=== PATIENT | female | born 1960 | race Caucasian/White ===

== ENCOUNTER 2025-03-30 15:11 | Outpatient (AMB) | payer MEDICARE, SELFPAY ==
--- OUTSIDE RECORDS SUMMARY | 2025-03-29 17:50 | XMS_ITS | Continuity of Care Document ---
Author Organization [facility] ter Address [address] [place] [id number]- Care Team Providers Care Director Digital Marketing Name Role Phone Venkata LÓPEZ, oD Primary Care Physician [phone] [id number] Date(s): 03/26/25 - 03/29/[address] [id number] Discharge Disposition: A-D/C Home Attending Physician: Edmund Lennon MD Admitting Physician: Vangie Burk MD Referring Physician: Not on Staff, Referring MD Encounter Type: Disch IP Allergies, Adverse Reactions, Alerts Substance Criticality Severity Reaction Reaction Severity Status Demerol Active Functional Status Functional Status Assessment Assessment Assessment Component Result Effecti ve Total score [AUDIT] 1 03/27/25 Functional Status Assessment Assessment Assessment Component Result Effecti ve Total Falls Risk Score 10 Functional Status Assessment Assessment Assessment Component Result Effecti ve Jerman scale total score 21 03/29/25 Functional Status Assessment Assessment Assessment Component Result Effecti ve Jerman scale total score 21 03/28/25 Functional Status Assessment Assessment Assessment Component Result Effecti ve Total Falls Risk Score 8 Functional Status Assessment Assessment Assessment Component Result Effecti ve Jerman scale total score 20 03/28/25 Functional Status Assessment Assessment Assessment Component Result Effecti ve Total Falls Risk Score 3 Medications acetaminophen 325 mg oral tablet 650 mg, By Mouth, Every 4 hours, PRN, not to exceed 4000 mg/day, # 30 tablet, Refills 0, Tot. Refills 0, Maintenance, Pain , Mild, 03/29/25 2:59:00 PM EST, Route to Pharmacy Electronically, [facility], Partial fill upon patient request if the prescription is for a schedule II opioid drug., 160, cm, 03/27/25 5:09:00 EST, Height, 46.3, kg, 03/27/25 1:07:00 EST, Dry Weight Start Date: 03/29/25 Status: Ordered Medication Dispense Status: Completed Quantity: 30.0 Unit: tablet Total Allowed Fills: 1 Fills Dispensed: 0 Acetaminophen Tablet 650 mg, Tablet, By Mouth, Every 4 hours, PRN for Pain , Mild, Temperature Greater than 100.5, Routine, 03/26/25 10:27:00 PM EST Start Date: 03/26/25 Stop Date: 03/30/25 Status: Discontinued Medication Dispense Status: Completed Total Allowed Fills: 1 Fills Dispensed: 0 amLODIPine 2.5 mg oral tablet 2.5 mg, 1, tablet, By Mouth, Daily, # 90 tablet, Refills 0, Tot. Refills 0, Maintenance, 03/12/25 11:33:00 AM EST, Route to Pharmacy Electronically, [facility], Partial fill upon patient request if the prescription is for a schedule II opioid drug., 158, cm, 03/12/25 9:13:00 EST, Height Start Date: 03/12/25 Status: Ordered Medication Dispense Status: Completed Quantity: 90.0 Unit: tablet Total Allowed Fills: 1 Fills Dispensed: 0 amLODIPine 5 mg oral tablet 2.5 mg, Tablet, By Mouth, 03/29/25 9:00:00 AM EST Start Date: 03/29/25 Stop Date: 03/29/25 Status: Completed Medication Dispense Status: Completed Total Allowed Fills: 1 Fills Dispensed: 0 dexamethasone 4 mg oral tablet 1 tablet = 4 mg, By Mouth, Every 6 hours, for 7 days, # 28 tablet, 0 Refills, Acute 04/05/25 3:00:00 PM EST, 03/29/25 3:00:00 PM EST, Tablet, [facility], Partial fill upon patient request if the prescription is for a schedule II opioid drug., 160, cm, 03/27/25 5:09:00 EST, Height, 46.3, kg, 03/27/25 1:07:00 EST, Dry Weight Start Date: 03/29/25 Stop Date: 04/05/25 Status: Ordered Medication Dispense Status: Completed Quantity: 28.0 Unit: tablet Total Allowed Fills: 1 Fills Dispensed: 0 Keppra 500 mg oral tablet = 500 mg, By Mouth, 2 times a day, # 60 tablet, 0 Refills, Maintenance, 03/29/25 2:59:00 PM EST, Tablet, [facility], Partial fill upon patient request if the prescription is for a schedule II opioid drug., 160, cm, 03/27/25 5:09:00 EST, Height, 46.3, kg, 03/27/25 1:07:00 EST, Dry Weight Start Date: 03/29/25 Status: Ordered Medication Dispense Status: Completed Quantity: 60.0 Unit: tablet Total Allowed Fills: 1 Fills Dispensed: 0 oxyCODONE 5 mg oral tablet 2.5 mg, By Mouth, Every 6 hours, PRN, # 7 tablet, Refills 0, Tot. Refills 0, Maintenance, Pain , Severe, 03/29/25 2:58:00 PM EST, Route to Pharmacy Electronically, [facility], Partial fill upon patient request if the prescription is for a schedule II opioid drug., 160, cm, 03/27/25 5:09:00 EST, Height, 46.3, kg, 03/27/25 1:07:00 EST, Dry Weight Start Date: 03/29/25 Status: Ordered Medication Dispense Status: Completed Quantity: 7.0 Unit: tablet Total Allowed Fills: 1 Fills Dispensed: 0 Mental Status Mental Status Assessment Assessment Assessment Component Result Effecti ve Date Hopkins coma score total 15 03/29/25 Mental Status Assessment Assessment Assessment Component Result Effecti ve Date Hopkins coma score total 15 03/28/25 Mental Status Assessment Assessment Assessment Component Result Effecti ve Date Gary coma score total 15 03/28/25 Problem List Condition Confirmation Course Effective Dates Status Health St atus Informant Underweight Confirmed Active Results Radiology Reports * Exam Date Time Procedure Performing Provider Status 03/27/25 5:44 PM MRI Brain W+W/O Contrast Auth (Verified) Notes: (MRI Brain W+W/O Contrast) Reason For Exam: Seizure Disorder RESULT: MRI Brain W+W/O Contrast MRI Brain W+W/O Contrast INDICATION / CLINICAL QUESTION: Reason: Seizure Disorder; Clinical Question(s): Other:; METS, MASS;Order Comment: Please see Reference Text for complete list of contraindications - TECHNIQUE: Multiplanar, multisequence MRI of the brain was performed before and after the administration of intravenous contrast. 10 mL of Prohance was administered intravenously. COMPARISON: CT head 03/26/2025 FINDINGS: BRAIN and EXTRA-AXIAL SPACES: Prominent ventricles and cerebral sulci, suggestive of mild age-related cerebral volume loss. The basal cisterns are patent. Numerous enhancing supratentorial and infratentorial lesions, as follows. No significant associatedintralesional hemorrhage.: * 10 x 9 mm enhancing lesion at the superior left perirolandic cortex at the vertex with mild subcortical edema (10:37). * 10 x 8 mm lesion at the junction between left temporal and occipital lobe, mostly cortically based with minimal subcortical edema (10:108). * Subcentimeter enhancing lesions in the superior left temporal lobe and lateral left frontal operculum (10:100, 10:90). Additional smaller lesions throughout supratentorial compartment involving right frontal lobe, medial and lateral right parietal lobe, posterior left parietal lobe, as annotated on series 10. * A 15 x 13 mm inferior right cerebellar lesion, along the surface, with possible overlying dural thickening (10:164, 1001:35), possibly overlying subarachnoid extension and attachment to the dura. * Numerous smaller subcentimeter lesions that the bilateral cerebellar hemispheres. * Tiny plaque-like enhancement along the surface of right precentral gyrus (10:52), suspicious for leptomeningeal disease. No evidence of acute infarct or hemorrhage. Nonenhancing 10 mm T2/FLAIR hyperintense focus in the superior right frontal lobe superior sagittal sinus subcortical white matter (9:8), with associated central somewhat branching susceptibility artifact (4:8), possibly a tiny DVA. There is no midline shift, or mass effect. There is no extra-axial collection. Normal flow voids are preserved in the dominant intracranial vessels. Bilateral hippocampi are unremarkable and symmetric in size and signal. EXTRACRANIAL SOFT TISSUES: Orbits are unremarkable. Paranasal sinuses are unremarkable. Bilateral mastoid effusions. BONES: No suspicious bony lesion. IMPRESSION: 1. Numerous supratentorial and infratentorial enhancing lesions, as above, concerning for intracranial metastases, mostly intra-axial, but a few suspicious leptomeningeal disease component along the right precentral gyrus and inferior right cerebellum. 2. Nonspecific patchy edema or gliosis in the superior right frontal lobe white matter with possible central susceptibility artifact. Finding is nonspecific, but mild edema associated with tiny DVA. WSN: [id number] Ordering Physician: Sukhdev Johnston Dictated By: Amrit Periera DO Dictated Date/Time: 03/27/25 6:29 pm Reviewed By: Amrit Pereira DO Signed By: Amrit Pereira DO Signed Date/Time: 03/27/25 6:29 pm Transcribed By: NESSA Transcribed Date/Time: 03/27/25 6:02 pm * Exam Date Time Procedure Performing Provider Status 03/26/25 7:[address] Head/Brain W/O Contrast Auth (Verified) Notes: (CT Head/Brain W/O Contrast) Reason For Exam: Seizure Disorder RESULT: CT Head/Brain W/O Contrast CT Head/Brain W/O Contrast INDICATION: Hx of Present Illness: Pt unable to offer complaints r t being unresponsive.; Reason: Seizure Disorder; Clinical Question(s): Tumor Primary; Order Comment: - TECHNIQUE: Noncontrast head CT using axial technique and reconstructed in axial and coronal planes.Iterative reconstruction techniques are used to optimize dose and image quality. CTDIvol Head: 48.20 mGy, DLP Head: 772 mGy*cm. COMPARISON: 03/11/2025 FINDINGS: Jig Worker view findings, lines and tubes: None. BRAIN AND EXTRA-AXIAL SPACES: No parenchymal hemorrhage, midline shift, or mass effect. Chamberlain-white matter differentiation is wellpreserved. No acute infarct. Ventricles, sulci, and basilar cisterns are normal. No white matter lesions. No subarachnoid hemorrhage. No subdural or epidural collection. CALVARIUM, SKULL BASE, AND SOFT TISSUES: No fractures or suspicious bony lesions. The paranasal sinuses and mastoid air cells are clear. Visualized orbits and globes are intact. The extracranial soft tissues are unremarkable. IMPRESSION: No acute intracranial pathology. WSN: [id number] Ordering Physician: Moe Angeles Dictated By: Alen Camacho MD Dictated Date/Time: 03/26/25 7:41 pm Reviewed By: Alen Camacho MD Signed By: Alen Camacho MD Signed Date/Time: 03/26/25 7:41 pm Transcribed By: NESSA Transcribed Date/Time: 03/26/25 7:37 pm * Exam Date Time Procedure Performing Provider Status 03/26/25 5:17 PM Chest Portable Auth (Nando campuzanoadriana) Notes: (Chest Portable) Reason For Exam: Pneumonia/sepsis;Other: RESULT: Chest Portable Chest Portable performed semiupright at 5:04 PM Hx of Present Illness: Pt unable to offer complaints r t being unresponsive.; Reason: Other:; Pneumonia sepsis; Clinical Question(s): Other:; pneumonia COMPARISON: Chest x-rays and chest CT dated 03/11/2025 FINDINGS: LINES AND TUBES: None. LUNGS AND PLEURA: Mass in the left upper lobe is again seen measuring approximately 10 cm. Additional nodules in the right upper lobe are better visualized on the recent chest CT. No focal infiltrate. No evidence of pleural effusion. No pneumothorax. HEART, MEDIASTINUM AND ALLEN: Heart is normal in size. Unchanged obscuration of the left hilum. Mild calcification in the aortic arch. Increased elevationof the left hemidiaphragm. BONES AND SOFT TISSUES: No acute abnormality. IMPRESSION: No significant change in known left upper lobe mass compatible with biopsy- proven adenocarcinoma. Additional nodules in the right upper lobe are better visualized on recent chest CT. No evidence of pneumonia. WSN: [id number] Ordering Physician: Moe Angeles Dictated By: Barbara Moore MD Dictated Date/Time: 03/26/25 5:24 pm Reviewed By: Barbara Moore MD Signed By: Barbara Moore MD Signed Date/Time: 03/26/25 5:24 pm Transcribed By: NESSA Transcribed Date/Time: 03/26/25 5:18 pm Vital Signs Most recent to oldest [Reference Range]: 1 2 3 Height 160 cm (03/27/25 5:09 AM) 160 cm (03/27/25 1:17 AM) 160 cm (03/27/25 1:07 AM) Weight 46.3 kg (03/27/25 1:07 AM) 46 kg (03/26/25 7:48 PM) 46 kg (03/26/25 4:55 PM) Oxygen Saturation [94-100 %] 98 % (03/29/25 3:00 PM) 97 % (03/29/25 11:00 AM) 96 % (03/29/25 7:00 AM) Pulse Rate [55-90 bpm] 96 bpm *H* (03/29/25 3:00 PM) 89 bpm (03/29/25 11:00 AM) 93 bpm *H* (03/29/25 7:00 AM) Body Mass Index [18.5-24.99 kg/m2] 18.09 kg/m2 *L* (03/27/25 1:07 AM) 16.3 kg/m2 *L* (03/26/25 7:48 PM) 16.3 kg/m2 *L* (03/26/25 3:59 PM) Blood Pressure [90-138/55-84 mm Hg] 125/60mm Hg (03/29/25 3:00 PM) 115/73mm Hg (03/29/25 11:00 AM) 121/69mm Hg (03/29/25 10:09 AM) Respiratory Rate [16-30 br/min] 16 br/min (03/29/25 4:24 PM) 16 br/min (03/29/25 3:00 PM) 16 br/min (03/29/25 11:12 AM) Temperature [96.8-100.4 DegF] 98.1 DegF (03/29/25 3:00 PM) 97.5 DegF (03/29/25 11:00 AM) 98.2 DegF (03/29/25 7:00 AM) Liters per Minute 2 L/min (03/26/25 11:13 PM) 2 L/min (03/26/25 8:00 PM) 2 L/min (03/26/25 7:48 PM) Mode of Delivery (Oxygen) Room air (03/29/25 3:00 PM) Room air (03/29/25 11:00 AM) Room air (03/29/25 7:00 AM) Blood pressure sites Arm, right (03/29/25 3:00 PM) Arm, right (03/29/25 11:00 AM) Arm, right (03/29/25 7:00 AM) Temperature Route Oral (03/29/25 3:00 PM) Oral (03/29/25 11:00 AM) Oral (03/29/25 7:00 AM) Dry Weight 46.3 kg (03/27/25 1:07 AM) Weight Obtained Via Patient/family state d (03/26/25 3:59 PM) Social History Social History Type Response Sex Sex Representation Female (finding) Status Not Admission evaluation note * Sukhdev Johnston MD: PERFORM Event Display: Admission Note Authored Date: [id number] Patient: ??BRIT NAJERA ? Age:??65 Years?Sex:??Female?:??1960?LOC:??[facility]?? Chief Complaint/Reason for Consultation Seizure History of Present Illness The patient is a 65 years old female with recently diagnosed??left lung cancer, hypertension presented to ER with a chief complaint of seizure. ? The patient was discharged from [facility] on March 12 after being admitted??for??spasm in right leg. ??During hospital stay, patient was found to have new left lung mass, underwent??biopsy and discharged home with outpatient follow-up. ? The patient reported??reported that she continues to have??twitching/spasm in her right lower extremity and??today, she??thinks she might have a seizure??as she passed out while??sitting in the couch.?? Therefore, she decided come to the ER ?? In the triage room, patient??had a witnessed generalized tonic-clonic seizure??and was given IV Keppra,??and admitted for further management ? On my eval, patient alert, awake, oriented x 3,??reporting lower back pain but denying any chestpain or shortness of breath Review of Systems All pertinent negative and positives are noted in HPI. ??All other systems were reviewed and are negative Objective Measurements?? Height: 168 cm (03/26/25) Weight: 46 kg (03/26/25) Body Mass Index:??16.3 kg/m2??Low (03/26/25) ? Vital Signs?? Temperature: 98 DegF (03/26/25 23:13:00) Temperature Route: Oral (03/26/25 23:13:00) Pulse Rate: 87 bpm (03/26/25 23:13:00) Respiratory Rate:??13 br/min??Low (03/26/25 23:56:00) Systolic Blood Pressure:??151 mm Hg??High (03/26/25 20:00:00) Diastolic Blood Pressure: 82 mm Hg (03/26/25 20:00:00) Blood pressure sites: Arm, right (03/26/25 23:13:00) Mean Arterial Pressure: 97 mm Hg (03/26/25 19:48:00) Pulse Pressure: 63 mm Hg (03/26/25 19:48:00) Oxygen Saturation: 100 % (03/26/25 23:13:00) Liters per Minute: 2 L/min (03/26/25 23:13:00) Mode of Delivery (Oxygen): Nasal cannula (03/26/25 23:13:00) Early Warning Score: 0 (03/27/25 00:04:12) ? Physical Exam Constitutional: Alert, in no acute distress. Head: Normocephalic. ?? Eyes: Pupils are equal, round and reactive to light. Extraocular muscles intact. No pallor or scleral icterus ?? Ear, Nose and Throat: mucous membranes moist. Ears and nose - no obvious deformities. Trachea midline. ?? Neck: Supple, Full range of motion.No JVD or bruits. Respiratory:??Clear to auscultation. No wheezing or rhonchi.??No use of accessory muscles. No tactile fremitus.?? Cardiovascular:??PMI not visible. S1 S2 regular. No murmurs, rubs or gallops. Gastrointestinal:??Abdomen soft, non-tender, non-distended. Normal bowel sounds. No pulsatile mass.No hepatosplenomegaly. Genitourinary:??No costovertebral angle tenderness. Extremities: No lower extremity pitting edema. No cyanosis or clubbing. Neurologic:??AAOx3, Cranial nerves II-XII grossly intact. Speech normal, no facial droop. No focal neurological deficits. Moves all extremities spontaneously. Sensation intact bilaterally.??Flexor plantar response Skin:??No rash.?? Musculoskeletal:??No gross deformities on inspection. Heme/Lymphatics:??Palpation of neck reveals no swelling or tenderness of neck nodes.?? Psychiatric: Normal mood and affect. Assessment/Plan Diagnoses 1. ??New onset seizure ??(R56.9) 2. ??Adenocarcinoma of left lung ??(C34.92) 3. ??High anion gap metabolic acidosis ??(E87.29) 4. ??Lactic acidosis ??(E87.20) 5. ??Hypercalcemia ??(E83.52) 6. ??Hypokalemia ??(E87.6) 7. ??HTN (hypertension) ??(I10) ?? Assessment:??The patient is a 65 years old female who is admitted with seizure ?? New onset seizure (R56.9):??Patient.??To ER due to twitching/spasm of right lower extremity and??had a generalized tonic-clonic seizure in the ER Patient reports that??she might have??a seizure at home as well??as she passed out while??sitting in sofa Patient recently diagnosed with??left-sided lung cancer CT head was done that did not show any evidence of acute abnormality Labs showed??normal sodium, normal mag, calcium level??12.2 Ordered MRI brain, EEG,??U tox Started patient on Keppra 500 mg twice daily, seizure precautions Neurology consulted, will follow recommendations ?? Adenocarcinoma of left lung (C34.92):??Patient was recently diagnosed with a left-sided lung cancer Patient is scheduled undergo PET scan on April 04,??appointment with pulmonology on ??and permanent with PCP??on Continue outpatient follow-up ? High anion gap metabolic acidosis (E87.29):??Etiology: Due to seizure Resolved with IV fluids ?? Hypokalemia (E87.6):??Repleted ?? HTN (hypertension) (I10):??Resume home meds amlodipine ?? Hypercalcemia (E83.52):??Etiology: Likely due to malignancy Labs showed calcium 11.1 Will give 1 L of IV fluids normal saline and trend calcium with labs ?? VTE Prophylaxis:??Lovenox ?VTE Prophylaxis Assessment:??VTE Prophylaxis Ordered ?? Discharge Planning:??Pending clinical course ?? Ongoing Medical Necessity:??New onset seizure ?? Code Status:??Full code ?Order Code Status:??Code Status Ordered ? Date of service: March 26, 2025 Histories Allergies Allergies ?(Active and Proposed Allergies Only) Demerol? (Severity: Unknown severity, Onset: Unknown) ? Past Medical History/Problem List Active Problems(1) Underweight ? Past Surgical History No surgery history documented. ? Social History No social history documented. ? Family History No Family History documented. ? Medications Home Medications Amlodipine (amLODIPine 2.5 mg oral tablet)??2.5 Milligram 1 tablet By Mouth Daily ? Results Recent Labs BLOOD COUNT & DIFF WBC 15.7 k/mm3 (High)?? 03/26/2025 16:30 RBC 4.73 m/mm3 ()?? 03/26/2025 16:30 Hgb 13.1 Gm/dL ()?? 03/26/2025 16:30 Hct 41.9 % ()?? 03/26/2025 16:30 MCV 88.6 femtoliters ()?? 03/26/2025 16:30 MCH 27.7 pg ()?? 03/26/2025 16:30 MCHC 31.3 Gm/dL (Low)?? 03/26/2025 16:30 Platelet Count 485 k/mm3 (High)?? 03/26/2025 16:30 RDW-SD 42.2 femtoliters ()?? 03/26/2025 16:30 MPV 9.4 femtoliters ()?? 03/26/2025 16:30 Nucleated RBC (Automated) 0.0 #/100 WBC'S ()?? 03/26/2025 16:30 Abs. NRBC 0.0 k/mm3 ()?? 03/26/2025 16:30 Abs. Neut 11.6 k/mm3 (High)?? 03/26/2025 16:30 Abs. Lymph 2.8 k/mm3 ()?? 03/26/2025 16:30 Abs. [place] 0.9 k/mm3 ()?? 03/26/2025 16:30 Abs. Eo 0.1 k/mm3 ()?? 03/26/2025 16:30 Abs. Baso 0.1 k/mm3 ()?? 03/26/2025 16:30 Neut % 73.9 % ()?? 03/26/2025 16:30 Lymph % 18.1 % ()?? 03/26/2025 16:30 [place] % 5.8 % ()?? 03/26/2025 16:30 Eos % 0.8 % ()?? 03/26/2025 16:30 Baso % 0.8 % ()?? 03/26/2025 16:30 Hemoglobin (POC) POC Cartridge 14.3 Gm/dL ()?? 03/26/2025 16:20 Hematocrit (POC) POC Cartridge 42 % ()?? 03/26/2025 16:20 Imm Gran 0.6 % ()?? 03/26/2025 16:30 Abs. Imm Gran 0.1 k/mm3 ()?? 03/26/2025 16:30 ?? BLOOD GAS pH Venous (POC) POC Cartridge 7.19 (Low)?? 03/26/2025 16:20 pCO2 Venous (POC) POC Cartridge 47.6 mm Hg ()?? 03/26/2025 16:20 pO2 Venous (POC) POC Cartridge 110 mm Hg (High)?? 03/26/2025 16:20 Est Bicarbonate (POC) POC Cartridge 18.0 mmol/L (Low)?? 03/26/2025 16:20 % O2 Sat Venous (POC) POC Cartridge 97 ()?? 03/26/2025 16:20 Base Excess (POC) POC Cartridge NEGATIVE 10 ()?? 03/26/2025 16:20 Specimen Type - Blood Gas VENOUS ()?? 03/26/2025 16:20 ?? CHEM GENERAL Sodium 139 mmol/L ()?? 03/26/2025 20:22 Potassium 4.0 mmol/L ()?? 03/26/2025 20:22 Chloride 101 mmol/L ()?? 03/26/2025 20:22 Bicarbonate Level 25 mmol/L ()?? 03/26/2025 20:22 Anion Gap 13 mmol/L ()?? 03/26/2025 20:22 Sodium (POC) POC Cartridge 137 mmol/L ()?? 03/26/2025 16:20 Potassium (POC) POC Cartridge 3.3 mmol/L (Low)?? 03/26/2025 16:20 Glucose Level 117 mg/dL (High)?? 03/26/2025 20:22 Glucose (POC) POC Cartridge 195 (High)?? 03/26/2025 16:20 Glucose, POC 144 mg/dL (High)?? 03/26/2025 16:15 BUN 11 mg/dL ()?? 03/26/2025 20:22 Creatinine-Blood 0.45 mg/dL (Low)?? 03/26/2025 20:22 Estimated GFR Creatinine 105 ML/MIN/1.73 M2 ()?? 03/26/2025 20:22 Calcium 11.1 mg/dL (High)?? 03/26/2025 20:22 Ionized Calcium (POC) POC Cartridge 1.50 mmol/L (Critical)?? 03/26/2025 16:20 Phosphorus 2.8 mg/dL ()?? 03/26/2025 16:30 Magnesium 2.1 mg/dL ()?? 03/26/2025 16:30 Protein, Total 7.7 Gm/dL ()?? 03/26/2025 16:30 Albumin 4.5 Gm/dL ()?? 03/26/2025 16:30 AG Ratio 1.4 ()?? 03/26/2025 16:30 Alkaline Phosphatase 73 units/L ()?? 03/26/2025 16:30 AST (SGOT) 21 units/L ()?? 03/26/2025 16:30 ALT (SGPT) 13 units/L ()?? 03/26/2025 16:30 Bilirubin, Total 0.3 mg/dL ()?? 03/26/2025 16:30 Lactate 1.1 mmol/L ()?? 03/26/2025 20:22 ?? ENDOCRINE/TUMOR MARKER TSH 1.59 uIU/mL ()?? 03/26/2025 16:30 ?? MISC. CHEMISTRY Hold Green Top SPECIMEN DISCARDED AFTER 1 WEEK ()?? 03/26/2025 20:22 ?? UA/URINALYSIS Appear/Color, Urine LIGHT YELLOW ()?? 03/26/2025 23:30 Specific Mallory, Urine 1.009 ()?? 03/26/2025 23:30 pH, Urine 7.5 ()?? 03/26/2025 23:30 Albumin, Urine TRACE (Abnormal)?? 03/26/2025 23:30 Glucose, Urine NEGATIVE ()?? 03/26/2025 23:30 Ketones, Urine NEGATIVE ()?? 03/26/2025 23:30 Bilirubin, Urine NEGATIVE ()?? 03/26/2025 23:30 Hemoglobin, Urine NEGATIVE ()?? 03/26/2025 23:30 Nitrite, Urine NEGATIVE ()?? 03/26/2025 23:30 Leukocyte, Urine NEGATIVE ()?? 03/26/2025 23:30 Urobilinogen NORMAL mg/dL ()?? 03/26/2025 23:30 WBC's, Urine NONE SEEN /HPF ()?? 03/26/2025 23:30 RBC's, Urine NONE SEEN /HPF ()?? 03/26/2025 23:30 Amorphous Crystals SLIGHT /HPF ()?? 03/26/2025 23:30 ?? VIROLOGY Influenza A PCR NEGATIVE ()?? 03/26/2025 19:53 Influenza B PCR NEGATIVE ()?? 03/26/2025 19:53 RSV PCR NEGATIVE ()?? 03/26/2025 19:53 COVID-19 PCR Result NEGATIVE ()?? 03/26/2025 19:53 ? Coagulation Profile?? No qualifying data available. ? Electronically Signed on 03/27/25 12:30 AM Preston LÓPEZ Sukhdev EKG study * Event Display: ECG 12-Lead Authored Date: Please click on pdf link to open report * Event Display: ECG 12-Lead Authored Date: Ventricular Rate: 118 BPM Atrial Rate: 118 BPM P-R Interval: 150 ms QRS Duration: 100 ms Q-T Interval: 336 ms QTC Calculation(Bazett): 470 ms P Mobile: -8 degrees R Mobile: 90 degrees T Mobile: -10 degrees Sinus tachycardia Incomplete right bundle branch block Anterolateral infarct (cited on or before 10-Mar-2025) Abnormal ECG When compared with ECG of 10-Mar-2025 18:52, Questionable change in initial forces of Lateral leads T wave inversion now evident in Inferior leads Confirmed by DAVIE LÓPEZ, [facility] ([id number]) on 03/29/2025 8:21:15 AM [place]: DAVIE LÓPEZ,[facility] Progress note * Cookie Singletary RN: SIGN, PERFORM, SIGN, VERIFY, MODIFY Event Display: Progress Note Hospital Authored Date: Patient: BRIT NAJERA Age: 65 years Sex: Female : 1960 Associated Diagnoses: None Author: Cookie Singletary RN Findings Problem Related to Alteration in Neurological : Alteration in Neurological Function/new 03/29/2025 8:00 EST Alteration in Neuro status Related to Seizure Goals & Outcomes, Neurological Pt will be hemodynamically stable, Pt will be Neurologically stable, Pt will remain free from injury, Pt/caregiver will receive psychosocial support as needed, Pt/caregiver will state understanding of disease process, Pt/caregiver will state understanding of plan/goals of care, Pt will be free from complications r/t seizure activity, Pt will be seizure controlled, Pt will remain free from injury post seizure activity, Pt will return to baseline after post ictal phase, Pt/caregiver will state understanding of home management Interventions, Neurological Assess/monitor neurologic status, Assess/monitor VS per unit standards & prn, Keep patient's head & body in good alignment, Maintain normothermia, report temp >101.5 F, Monitor Fluid & Electrolytes, Serum Osmolarity, Monitor for headaches, nausea, vomiting, Monitor speech fluency, aphasia, word finding difficulty, Physical assessment per unit standards, P rovide emotional support to Pt/caregiver, Assess & monitor for seizure activity, Assess for aspiration and status epileptics, Initiate & maintain Seizure Precautions, Minimize seizure triggering stimuli (i.e. light, noise, pain, Monitor for therapeutic levels of anti-seizure meds BH Goals/Interventions, Neurological Yes Neurological, Problem Start 03/27/2025 1:00 Reviewed plan with, Neurological Patient Patient Progression, Neurological Pt progressing according to plan . Nursing Data Neurological Data. : Neurological Data. 03/29/2025 8:00 EST Tongue Disposition Midline Neurological Symptoms Altered sensation or tingling Level of Consciousness Full Consciousness Orientated to person, place, time Person, Place, Time, Event Hallucinations None Facial Symmetry Intact Characteristics of Speech Clear and normal Swallowing Difficulty None Pupil description, left Regular Pupil description, right Regular Pupil reaction, left Brisk Pupil reaction, right Brisk Strength LUE 5-Active movement against gravity & full resistance Strength RUE 5-Active movement against gravity & full resistance Strength LLE 5-Active movement against gravity & full resistance Strength RLE 5-Active movement against gravity & full resistance Sensation LUE Intact Sensation RUE Intact Sensation LLE Intact Sensation RLE Diminished Movement LUE Spontaneous, To command Movement RUE Spontaneous, To command Movement LLE Spontaneous, To command Movement RLE Spontaneous, To command Gait Steady Response Eye Opening Spontaneously Motor Response-Adult Obeys commands Verbal Response-Adult Oriented and converses Gary Coma Score 15 Neuro WNL except Eyes and Movements Conjugate gaze: Move in same direction at same speed Swallow - Neuro Normal . Narrative/Incidental Pt alert and oriented x4 pupil s= reactive speech clear follows commands smile symmetrical tongue midline + hand grasps + pp sherry + dorsi/plantar fklexion able to lift legs off the bed + numbness to rt foot steady gait, lungs claer no sob no cough abdsnt+bsx4 no n/v appetite fair to good voids adequately bm late this afternoon skin intact cysyts to back NSR on tele, seizure precautions in place nos/s of seizure activity call sharpe within reach bed alarm for safety. Electronically Signed on 03/29/25 08:12 PM Cookie Singletary RN, RN, Cookie Royal: PERFORM Event Display: Progress Note Hospital Authored Date: Pt given discharge instructions able to verbalize s/s of seizures and when to return to the ED aware of when to follow up with neuro and onc, appt with pcp tomorrow, and to continuous pickling line pickler disc prior to, able to verbalize what her meds are and when they are due, aware to pick ujp meds at [facility] on her way out, iv angio removed from left a/c and rt forearm with tips intact no drainage or edema dsd applied with tape tele removed earlier in the day, son here to transport her home no further questions left the floor ambulatory refused wheel chair Electronically Signed on 03/29/25 08:15 PM Hayder KENDRICK, Cookie Morocho NP, Shirley M: PERFORM, MODIFY, MODIFY Event Display: Progress Note Hospital Authored Date: [id number] Patient: ??BRIT NAJERA ? Age:??65 Years?Sex:??Female?:??1960?LOC:??[facility]?? Chief Complaint/Reason for Consult R leg twitching History of Present Illness Interval History: No acute events overnight reported.??Pt denies any further uncontrolled movement,lost time or LOC. Review of Systems Constitutional: Reports unintentional weight loss over the past few weeks. Eyes: Denies vision changes. Neurologic: Denies headaches, lightheadedness, or dizziness. Reports mild numbness in the right foot following her recent seizure, which is improving. Cardiovascular: Denies chest pain. Respiratory: Denies shortness of breath. Gastrointestinal: Reports ongoing nausea worsened by food smells with decreased appetite. Physical Exam Vitals & Measurements Vital Signs?? Temperature: 98.2 DegF (03/29/25 07:00:00) Temperature Route: Oral (03/29/25 07:00:00) Pulse Rate:??93 bpm??High (03/29/25 07:00:00) Respiratory Rate: 18 br/min (03/29/25 07:00:00) Systolic Blood Pressure: 112 mm Hg (03/29/25 07:00:00) Diastolic Blood Pressure: 68 mm Hg (03/29/25 07:00:00) Blood pressure sites: Arm, right (03/29/25 07:00:00) Mean Arterial Pressure: 94 mm Hg (03/28/25 15:00:00) Pulse Pressure: 63 mm Hg (03/28/25 23:00:00) Oxygen Saturation: 96 % (03/29/25 07:00:00) Mode of Delivery (Oxygen): Room air (03/29/25 07:00:00) Early Warning Score: 0 (03/29/25 07:57:58) Intake?? Output?? Oral Fluids: 180 mL (17:00) Urine Voided: 500 mL (10:00) ?? Urine Count: 1 (21:00) ??Gen: No acute distress, awake, alert, underweight HEENT: normocephalic, atraumatic. No ptosis. Psych: not depressed or anxious?? CV:?? rhythm?? regular, 2+radial pulses Pulm: normal I:E, no dyspnea ?? Neuro: Mental status: Oriented x 4 Speech is fluent, appropriate with no slurring or aphasia. Repeats, Names well. Follows simple and complex commands.?? Cranial Nerves: PERRL?? brisk , EOMI without nystagmus, Visual martinez full. Face appears symmetric with no drooping or weakness. Facial sensation intact. . Shoulder shrug symmetric bilaterally. Motor: strength??5/5 BUE/BLE. No pronator drift. Normal bulk and tone. No abnormal movements.?? Coordination: No ataxia or dysmetria noted with finger to nose. Sensation: Intact light touch sensation bilaterally. No extinction to double simultaneous stimulation. Gait deferred. ?? Relevant imaging and labs reviewed ?? 03/28 rEEG:This??routine??EEG, ??abnormal due to the bilateral intermittent arrhythmic??excessiveslowing, a nonspecific??indicator of subacute or chronic cerebral dysfunction. No epileptiform activity occurred.?? 03/27 MRI: Numerous enhancing supratentorial and infratentorial lesions, as follows. No significant associated intralesional hemorrhage.:?? * ??10 x 9 mm enhancing lesion at the superior left perirolandic cortex at the vertex with mild subcortical edema (10:37). * ??10 x 8 mm lesion at the junction between left temporal and occipital lobe, mostly cortically based with minimal subcortical edema (10:108). * ??Subcentimeter enhancing lesions in the superior left temporal lobe and lateral left frontal operculum (10:100, 10:90). Additional smaller lesions throughout supratentorial compartment involving right frontal lobe, medial and lateral right parietal lobe, posterior left parietal lobe, as annotated on series 10. * ??A 15 x 13 mm inferior right cerebellar lesion, along the surface, with possible overlying duralthickening (10:164, 1001:35), possibly overlying subarachnoid extension and attachment to the dura. * ??Numerous smaller subcentimeter lesions that the bilateral cerebellar hemispheres. * ??Tiny plaque-like enhancement along the surface of right precentral gyrus (10:52), suspicious for leptomeningeal disease. No evidence of acute infarct or hemorrhage. Nonenhancing 10 mm T2/FLAIR hyperintense focus in the superior right frontal lobe superior sagittal sinus subcortical white matter (9:8), with associated central somewhat branching susceptibility artifact (4:8), possibly a tiny DVA. There is no midline shift, or mass effect. There is no extra-axial collection. Normal flow voids are preserved in the dominant intracranial vessels. Bilateral hippocampi are unremarkable and symmetric in size and signal. EXTRACRANIAL SOFT TISSUES: Orbits are unremarkable. Paranasal sinuses are unremarkable. Bilateral mastoid effusions. BONES: No suspicious bony lesion Assessment/Plan ??Brit is a??65F with recently diagnosed lung adenocarcinoma and hypertension who presented to the ED for evaluation of new onset R leg twitching, found to have hypercalcemia,?a large??10 cm??left upper lobe??adenocarcinoma??metastatic to the liver and [employer], and unintentional??weight loss. While in the ED, she had a witnessed generalized tonic???clonic seizure and was treated with an IV levetiracetam loading dose. She reports that her typical events begin with abnormal sensations or involuntary movements in the right foot, which then progress up the right leg over several minutes before she loses awareness. She notes that some episodes remain limited to the right foot and resolve spontaneously without progression. She believes her first episode occurred in February, when she was admitted on 03/10 for right-leg spasms, which may have represented focal seizure activity. ??CT head (03/26) showed no acute intracranial pathology ??MRI brain w/wo (03/27) showed numerous enhancing supratentorial and infratentorial lesions consistent with metastatic disease, with possible leptomeningeal involvement, and mild nonspecific right frontal white-matter edema/gliosis. ??Routine EEG (03/28)??showed bilateral intermittent arrhythmic slowing, consistent with nonspecificsubacute or chronic cerebral dysfunction. No epileptiform activity was seen. ??Heme/Onc plans palliative chemo and possible short course of radiation therapy for brain lesions ?? 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 EEG shows nonspecific bilateral slowing and does not rule out epilepsy, given her intracranial lesions and the history and physical it is in her best interest to continue an antiepileptic agent at this time. ?? Recs:? -Continue Keppra 500mg BID, given risk for seizures with brain lesions -Continue Seizure precautions?? - for breakthrough seizure >5 min or back to back seizure without return to baseline give, 2mg IV Ativan or 5 mg IM versed;??if remains altered or seizures recur, monitor??airway, contact primary team and??notify Neurology covering provider on??pager [phone] - Patient educated??not to drive for six months per [place] [employer] law following a seizure. She verbalized understanding. - f/u outpt neuro, communicated. - will sign off ?? D/w Dr. Downey ??Recs provided to Dr. Tamayo ? Problem List/Past Medical History Ongoing [facility] Medications Medications (16) Active SCHEDULED: (7) Amlodipine 5 mg Tablet (amLODIPine 5 mg oral tablet) ??2.5 mg, By Mouth, Daily Dexamethasone 4 mg/mL Inj (Dexamethasone Inj) ??4 mg 1 mL, IV Push Slowly, Every 6 hours Enoxaparin 40 mg Inj (Enoxaparin Inj) ??40 mg 0.4 mL, Subcutaneous Injection, Daily Keppra 500mg Tablet (Keppra 500 mg oral tablet) ??500 mg, By Mouth, 2 times a day Multivitamin Therapeutic / Minerals Tablet (Multivit Therapeutic/Minerals Tablet) ??1 tablet, By Mouth, Daily NaCl 0.9% Flush 3ml (NaCL 0.9% Flush) ??3 mL, IV Push, Every 8 hours Phospha-Neutral 250mg Tablet ??2 tablet, By Mouth, Every 4 hours CONTINUOUS: (0) PRN: (9) Acetaminophen 325 mg Tablet (Acetaminophen Tablet) ??650 mg, By Mouth, Every 4 hours Dextromethorphan-Guaifenesin 20 mg-200 mg/10 mL Liqu UD (Robitussin DM Liquid) ??10 mL, By Mouth, Every 4 hours Lorazepam 2 mg Inj Syringe (Ativan Inj) ??2 mg, IV Push Slowly, Once Melatonin 3 mg Tablet (Melatonin Tablet) ??3 mg, By Mouth, Daily at bedtime NaCl 0.9% Flush 3ml (NaCL 0.9% Flush) ??3 mL, IV Push, Every 8 hours OxyCODONE 5 mg IR Tablet (oxyCODONE 5 mg oral tablet) ??2.5 mg, By Mouth, Every 6 hours Polyethylene Glycol 17 Gm Powder (MiraLax Powder) ??17 Gm 1 pack/packet, By Mouth, Daily Senna Tablet ??8.6 mg 1 tablet, By Mouth, 2 times a day Simethicone 80 mg Chewable Tablet (Simethicone Tablet) ??80 mg, Chew, 3 times a day Allergies Demerol Recent Lab Results No qualifying data available. Electronically Signed on 03/29/25 10:29 AM Bailee FRANK, Shirley Downey MD, David Trujillo: PERFORM Event Display: Progress Note Hospital Authored Date: [id number] I have reviewed the patient's medical history, findings on examination as documented in the PA/MANAGER SHELL note. I agree with the findings and plan as noted below. Case and its management discussed with PA/MANAGER SHELL. Electronically Signed on 03/29/25 03:52 PM Nasreen LÓPEZ, David Trujillo * Keri Hope RN: PERFORM, SIGN, VERIFY Event Display: Progress Note Hospital Authored Date: [id number] Patient: BRIT NAJERA Age: 65 years Sex: Female : 1960 Associated Diagnoses: None Author: Keri Hope RN Findings Problem Related to Alteration in Neurological : Alteration in Neurological Function/new 03/28/2025 20:00 EST Alteration in Neuro status Related to Seizure Goals & Outcomes, Neurological Pt will be hemodynamically stable, Pt will be Neurologically stable, Pt will remain free from injury, Pt/caregiver will receive psychosocial support as needed, Pt/caregiver will state understanding of disease process, Pt/caregiver will state understanding of plan/goals of care, Pt will be free from complications r/t seizure activity, Pt will be seizure controlled, Pt will remain free from injury post seizure activity, Pt will return to baseline after post ictal phase, Pt/caregiver will state understanding of home management Interventions, Neurological Assess/monitor neurologic status, Assess/monitor VS per unit standards & prn, Call/Report variances in assessments to provider, If no bowel movement in 3 days activatebowel regime, Maintain normothermia, report temp >101.5 F, Physical assessment per unit standards, Provide emotional support to Pt/caregiver, Teach & encourage deep breath & cough exercises, Teach pt/caregiver on plan of care, treatment, s/s & meds, Teach pt/caregiver on use of pain scale, Assess & monitor for seizure activity, Initiate & maintain Seizure Precautions, TeachPt/caregiver how to respond to seizures, Teach Pt/caregiver maintaining daily seizure log, Teach Pt/caregiver medications & schedule BH Goals/Interventions, Neurological Yes Neurological, Problem Start 03/27/2025 1:00 Reviewed plan with, Neurological Patient Patient Progression, Neurological Pt progressing according to plan . Nursing Data Neurological Data. : Neurological Data. 03/28/2025 20:00 EST Tongue Disposition Midline Neurological Symptoms Back pain, New onset seizures Level of Consciousness Confusion Orientated to person, place, time Person, Place, Time, Event Facial Symmetry Intact Characteristics of Speech Clear and normal Swallowing Difficulty None Pupil description, left Regular Pupil description, right Regular Pupil reaction, left Brisk Pupil reaction, right Brisk Pupil Size, Left 2 mm Pupil Size, Right 2 mm Strength LUE 5-Active movement against gravity & full resistance Strength RUE 5-Active movement against gravity & full resistance Strength LLE 5-Active movement against gravity & full resistance Strength RLE 5-Active movement against gravity & full resistance Sensation LUE Intact Sensation RUE Intact Sensation LLE Intact Sensation RLE Intact Movement LUE Spontaneous, To command Movement RUE Spontaneous, To command Movement LLE Spontaneous, To command Movement RLE Spontaneous, To command Gait Steady Response Eye Opening Spontaneously Motor Response-Adult Obeys commands Verbal Response-Adult Oriented and converses Hopkins Coma Score 15 Pain Location Other: low back Pain Intensity 5 1 - 10 Pain Scale Score 5 Quality Aching Pain Interventions PRN medication Pain relief acceptable Yes Neuro WNL except Eyes and Movements Conjugate gaze: Move in same direction at same speed Swallow - Neuro Normal . Evaluation Pt is alert, oriented x 4, moving all extremities 5/5 with right foot numbness, denies visual problems, pt reports pain in lower back 5-9/10 with acceptable relief 0-2/10, Pt ambulates with one assist , takes pills whole with water, denies dizziness, speech clear and appropriate. VSS, Afebrile, LS dimimished in the bases, denies SOB, Voiding in the bathroom without difficulty, last reported bowelmovement 03/26 with a normal pattern of every 2-3 days at baseline, PRN bowel given, pt denies any discomfort. + BS x 4,, Pt is on tele box #19 NSR. Disp plan still pending. Pt currently watching TV, all items within reach, bed in lowest position, bed alarm on for safety. See CIS for further assessment details. . Electronically Signed on 03/29/25 09:11 AM Keri Hope RN Consult note * Rosa LÓPEZ, Alfonzo: PERFORM Event Display: Consultation Note Authored Date: [id number] Patient: ??BRIT NAJERA ? Age:??65 Years?Sex:??Female?:??1960?LOC:??[facility]?? Reason for Consult/Visit metastatic brain disease Requesting Physician Darren LÓPEZ, Lb Hematology/Oncology History 65 years female, ex-smoker, and recently diagnosed lung adenocarcinoma presented with seizure. she was admitted in February when she presented with right lower extremity numbness twitching and weightloss.?? CT scan of the head done on admission was negative but CT scan of the chest showed a 10.6 cm left upper lobe mass with invasion into the mediastinal narrowing of the pulmonary arteries and left upper lobe bronchi.?? As well as multiple mediastinal and right hilar lymph nodes and subpleural nodule in the right lung.?? Patient underwent IR guided biopsy of the lung mass on 03/11.?? The pathology is consistent with lung adenocarcinoma, high-grade/poorly differentiated with complex glandular, acinar and solid patterns. PD-L1 showed no expression (<1% TPS) and NGS studies are negative. ?? Patient is now presenting with new onset seizure at home.?? MRI of the brain is consistent with Numerous supratentorial and infratentorial enhancing lesions, mostly intra-axial, but a few suspicious leptomeningeal disease component along the right precentral gyrus and inferior right cerebellum.?? Patient was seen by neurology and was started on Keppra. ?? Patient denies any shortness of breath, chest pain or coughing.?? She denies any more seizure activity.?? She does complain of recent weight loss.?? She denies any family history of cancer but statesthat her partner also from lung cancer a few years ago that was metastatic to the brain.?? She does have history of smoking but she quit smoking about 16 years ago.?? Before that she smoked for about 30 years about 1 pack or less a day Review of Systems All other systems were reviewed and are negative except for the ones mentioned above. Problem List/Past Medical History Ongoing Underweight Procedure/Surgical History No qualifying data available. Allergies Demerol Medications Inpatient Acetaminophen(Acetaminophen Tablet), 650 mg, By Mouth, Every 4 hours, PRN Amlodipine(amLODIPine 5 mg oral tablet), 2.5 mg, By Mouth, Daily Enoxaparin(Enoxaparin Inj), 40 mg= 0.4 mL, Subcutaneous Injection, Daily Guaifenesin/Dextromethorphan(Robitussin DM Liquid), 10 mL, By Mouth, Every 4 hours, PRN levETIRAcetam(Keppra 500 mg oral tablet), 500 mg, By Mouth, 2 times a day Lorazepam(Ativan Inj), 2 mg, IV Push Slowly, Once, PRN Melatonin(Melatonin Tablet), 3 mg, By Mouth, Daily at bedtime, PRN Multivitamin With Minerals(Multivit Therapeutic/Minerals Tablet), 1 tablet, By Mouth, Daily Oxycodone(oxyCODONE 5 mg oral tablet), 2.5 mg, By Mouth, Every 6 hours, PRN Polyethylene Glycol 3350(MiraLax Powder), 17 Gm= 1 pack/packet, By Mouth, Daily, PRN Senna(Senna Tablet), 8.6 mg= 1 tablet, By Mouth, 2 times a day, PRN Simethicone(Simethicone Tablet), 80 mg, Chew, 3 times a day, PRN Sodium Chloride(NaCL 0.9% Flush), 3 mL, IV Push, Every 8 hours Sodium Chloride(NaCL 0.9% Flush), 3 mL, IV Push, Every 8 hours, PRN Home Amlodipine(amLODIPine 2.5 mg oral tablet), 2.5 mg= 1 tablet, By Mouth, Daily Physical Exam Vitals & Measurements T:??98?F?? TMIN:??97.7?F?? TMAX:??98.7?F?? HR:??88??(Peripheral)?? RR:??20?? BP:??126/78??SpO2:??100%?? General: Patient in no apparent distress? GI: Soft, non tender Neuro: AOx 3; No focal neurological deficits.?? Extremities: No edema Lab Results/Pathology CBC?? CMP?? Abs. NRBC: 0 k/mm3 (03/28/25 08:45:00) AG Ratio: 1.4 (03/26/25 16:30:00) Hct: 40 % (03/28/25 08:45:00) Alkaline Phosphatase: 73 units/L (03/26/25 16:30:00) Nucleated RBC (Automated): 0 #/100 WBC'S (03/28/25 08:45:00) ALT (SGPT): 13 units/L (03/26/25 16:30:00) RBC: 4.71 m/mm3 (03/28/25 08:45:00) Anion Gap: 12 mmol/L (03/28/25 08:46:00) RDW-SD: 40.1 femtoliters (03/28/25 08:45:00) AST (SGOT): 21 units/L (03/26/25 16:30:00) WBC: 7.3 k/mm3 (03/28/25 08:45:00) Bicarbonate Level: 27 mmol/L (03/28/25 08:46:00) ?? Bilirubin, Total: 0.3 mg/dL (03/26/25 16:30:00) ?? BUN: 9 mg/dL (03/28/25 08:46:00) ?? Calcium:??11.7 mg/dL??High (03/28/25 08:46:00) ?? Chloride: 99 mmol/L (03/28/25 08:46:00) ?? Creatinine-Blood:??0.48 mg/dL??Low (03/28/25 08:46:00) ?? Estimated GFR Creatinine: 104 ML/MIN/1.73 M2 (03/28/25 08:46:00) ?? Glucose Level:??102 mg/dL??High (03/28/25 08:46:00) ?? Potassium: 4 mmol/L (03/28/25 08:46:00) ?? Protein, Total: 7.7 Gm/dL (03/26/25 16:30:00) ?? Sodium: 138 mmol/L (03/28/25 08:46:00) Assessment/Plan 65 years female, ex-smoker, and recently diagnosed lung adenocarcinoma presented with seizure. she was admitted in February and was found to have??a 10.6 cm left upper lobe mass with invasion into the mediastinal narrowing of the pulmonary arteries and left upper lobe bronchi.?? As well as multiplemediastinal and right hilar lymph nodes and subpleural nodule in the right lung.?? Patient underwent IR guided biopsy of the lung mass on 03/11.?? The pathology is consistent with lung adenocarcinoma, high-grade/poorly differentiated with complex glandular, acinar and solid patterns.?? PD-L1 showedno expression (<1% TPS) and NGS studies are negative. Patient is now presenting with new onset seizure at home.?? MRI of the brain is consistent with Numerous supratentorial and infratentorial enha ncing lesions as well as signs of leptomeningeal disease. ?? For brain metastasis would need to be evaluated for possible radiation therapy.?? Can start patienton dexamethasone 4 mg every 6 hours for leptomeningeal disease. Will follow-up with patient in clinic to discuss systemic treatment options for metastatic lung adenocarcinoma.?? Patient does not haveany targetable mutations and no PDL1 expression so the main study of treatment would be chemotherapy. ?? Patient has hypercalcemia.?? Adenocarcinoma is not usually associated with hypercalcemia patient does not have obvious bony disease on imaging.?? Not clear what is causing the hypercalcemia.?? Vitamin D levels are within normal limits and PTHrP is not elevated.?? PTH level is close to the upper limit of normal which I would expect to be suppressed with this level of hypercalcemia.?? Can consider discussing with endocrine if hyperparathyroidism is a possibility ?? Plan: - consult radiation therapy - start on dexamethasone 4 mg q6 hours - zoledronic acid 4mg IV for hypercalcemia. continue with hydration ?? Patient was seen and discussed with Dr. Trammell ?? Alfonzo Lee MD, MPH, PGY6 Hematology and Oncology Fellow Electronically Signed on 03/28/25 04:04 PM Alfonzo Lee MD, MD, Armen: PERFORM Event Display: Consultation Note Authored Date: I have seen and evaluated??the patient. ??I have discussed??this case and management with the fellow.?? Agree??with the??assessment and plan by ??Rosa. Patient is a??presenting with a large??10 cm??left upper lobe??adenocarcinoma??metastatic to the liver and [employer]. She is presenting with hypercalcemia and??new onset??seizures??in addition to??weight loss and??intermittent??twitching pain to the??right foot.?? She will be??a candidate for??palliative??chemoimmunotherapy??for metastatic??lung adenocarcinoma as an outpatient. Agree with??intravenous??zoledronic acid??to correct the hypercalcemia. Patient is a presenting with??numerous small??[employer] lesions??and??probably leptomeningeal disease. I agree with??dexamethasone 4 mg??every 6 hours??which can be tapered??off??once??starting on??systemic??treatment. Considering the new onset??seizures, and??symptomatic brain metastases??she may benefit from short course??palliative radiotherapy. Electronically Signed on 03/28/25 08:40 PM Rupert Trammell MD, MD, Ian L: PERFORM Event Display: Consultation Note Authored Date: [id number] Patient: ??BRIT NAJERA ? Age:??65 Years?Sex:??Female?:??1960?LOC:[facility]?? History of Present Illness Patient is a 65-year-old female??with history of??recently diagnosed??adenocarcinoma of the lung??and hypertension??who presented to the ER with concern of seizure and while in ER had a witnessed generalized tonic clonic seizure fro which she was loaded with levetiracetam.?? Patient describes seizur es as starting in her right foot??and then sending??up the right leg??over the course of a few minutes. ??She has no recollection??after that.?? She has had episodes??where it just involves the rightfoot??and then settles down.?? The first seizure event??likely occurred in February??when she was admitted on March 10??for right leg spasm. ? Started patient on Keppra 500 mg twice daily, seizure precautions ?? CT??head 03/26/2025 No acute intracranial pathology. Review of Systems as per [facility] Physical Exam Vitals & Measurements T:??98.2?F?? HR:??83??(Peripheral)?? RR:??16?? BP:??130/70?? SpO2:??96%?? HT:??160??cm?? WT:??46.3??kg?? BMI:??18.09?? Constitutional: Sitting comfortably in the room in no acute distress. Good nutritional status. Appears stated age.?? Psych: Calm and cooperative. Maintains good eye contact. Good insight Skin: Warm and dry. No rashes, lesions or ulcers Eyes: [place] conjunctiva, no ptosis. Sclera anicteric. PERRLA MSK: No swelling or tenderness of the joints, neck supple. No clubbing, cyanosis or edema of the extremities ?? Neurologic Examination ?? Mental Status: Alert with fluent and appropriate language.?? Attention, registration and recall intact. Fund of knowledge good.? Cranial Nerves:??Visual martinez full. EOMI with no nystagmus or diplopia. Facial sensation intact. Face activates symmetrically and tongue protrudes midline. Hearing is intact to friction rub bilaterally. No weakness in trapezius muscles.? Motor: Normal muscle bulk and tone throughout. No adventitious movements. No pronator drift or orbiting. Symmetric rapid movements. Strength 5/5 to manual muscle testing. ?? Reflexes: 1+ at bilateral biceps, triceps, brachioradialis, patella and ankle. Plantar response flexor bilaterally ?? Sensory: Sensation intact to light touch.? Coordination: Finger to nose testing within normal limits ?? Gait: deferred Assessment/Plan Assessment:??New onset seizures??of probable left hemispheric onset.??Agree with obtaining MRI of the brain??with and without contrast??in light of the recent??diagnosis of cancer.??Also agree with routine EEG.??Would continue on levetiracetam 500 mg twice daily for now. ?? Patient was advised to follow the rules and regulations of [facility]??[place]??with regard to driving and to avoid baths or swimming alone.? Neurology will follow. ?? Problem List/Past Medical History Ongoing Underweight Procedure/Surgical History No qualifying data available. Home Medications Amlodipine: 2.5 mg = 1 tablet, By Mouth, Daily Allergies Demerol Family History No family history recorded. Lab Results Test Name Test Result Date/Time WBC 15.7 k/mm3 03/26/2025 16:30 EST RBC 4.73 m/mm3 03/26/2025 16:30 EST Hgb 13.1 Gm/dL 03/26/2025 16:30 EST Hct 41.9 % 03/26/2025 16:30 EST MCV 88.6 femtoliters 03/26/2025 16:30 EST MCH 27.7 pg 03/26/2025 16:30 EST MCHC 31.3 Gm/dL 03/26/2025 16:30 EST Platelet Count 485 k/mm3 03/26/2025 16:30 EST RDW-SD 42.2 femtoliters 03/26/2025 16:30 EST MPV 9.4 femtoliters 03/26/2025 16:30 EST Nucleated RBC (Automated) 0.0 #/100 WBC'S 03/26/2025 16:30 EST Abs. NRBC 0.0 k/mm3 03/26/2025 16:30 EST Abs. Neut 11.6 k/mm3 03/26/2025 16:30 EST Abs. Lymph 2.8 k/mm3 03/26/2025 16:30 EST Abs. [place] 0.9 k/mm3 03/26/2025 16:30 EST Abs. Eo 0.1 k/mm3 03/26/2025 16:30 EST Abs. Baso 0.1 k/mm3 03/26/2025 16:30 EST Neut % 73.9 % 03/26/2025 16:30 EST Lymph % 18.1 % 03/26/2025 16:30 EST [place] % 5.8 % 03/26/2025 16:30 EST Eos % 0.8 % 03/26/2025 16:30 EST Baso % 0.8 % 03/26/2025 16:30 EST Imm Gran 0.6 % 03/26/2025 16:30 EST Abs. Imm Gran 0.1 k/mm3 03/26/2025 16:30 EST Sodium 138 mmol/L 03/26/2025 16:30 EST Potassium 3.3 mmol/L 03/26/2025 16:30 EST Chloride 95 mmol/L 03/26/2025 16:30 EST Bicarbonate Level 16 mmol/L 03/26/2025 16:30 EST Anion Gap 27 mmol/L 03/26/2025 16:30 EST Glucose Level 193 mg/dL 03/26/2025 16:30 EST BUN 12 mg/dL 03/26/2025 16:30 EST Creatinine-Blood 0.54 mg/dL 03/26/2025 16:30 EST Estimated GFR Creatinine 101 ML/MIN/1.73 M2 03/26/2025 16:30 EST Calcium 12.0 mg/dL 03/26/2025 16:30 EST Phosphorus 2.8 mg/dL 03/26/2025 16:30 EST Magnesium 2.1 mg/dL 03/26/2025 16:30 EST Protein, Total 7.7 Gm/dL 03/26/2025 16:30 EST Albumin 4.5 Gm/dL 03/26/2025 16:30 EST AG Ratio 1.4 03/26/2025 16:30 EST Alkaline Phosphatase 73 units/L 03/26/2025 16:30 EST AST (SGOT) 21 units/L 03/26/2025 16:30 EST ALT (SGPT) 13 units/L 03/26/2025 16:30 EST Bilirubin, Total 0.3 mg/dL 03/26/2025 16:30 EST Lactate 1.1 mmol/L 03/26/2025 20:22 EST Lactate 14.4 mmol/L 03/26/2025 16:30 EST Barbiturate Screen, Urine NONE DETECTED 03/26/2025 23:52 EST Cannabinoid Screen, Urine NONE DETECTED 03/26/2025 23:52 EST Cocaine Metabolite Screen, Urine NONE DETECTED 03/26/2025 23:52 EST Benzodiazepine Screen, Urine POSITIVE 03/26/2025 23:52 EST Amphetamine Screen, Urine NONE DETECTED 03/26/2025 23:52 EST Opiate Screen, Urine NONE DETECTED 03/26/2025 23:52 EST Electronically Signed on 03/27/25 09:40 AM Roberto Fabian MD Note * Cookie Singletary RN: PERFORM Event Display: Discharge/Transfer Note Hospital Authored Date: Nursing Discharge Note Entered On: 03/29/2025 20:20 EST Performed On: 03/29/2025 18:00 EST by Cookie Singletary RN Nursing Discharge Note 2 Discharge Level of Care at Discharge : Home/Penitentiary/Foster Care Discharge Time : 03/29/2025 17:50 EST Marketing Director Utilized : No Patient Left Unit Via : Ambulatory Patient Accompanied Off Unit with : Other: son DC Instructions Provided & Signed by Pt : Yes Patient Understands D/C Instructions : Yes Patient Instructions Discharge Signed : Yes Did Pt have Specialty Bed or Wound Vac : No Cookie Singletary RN - 03/29/2025 20:19 EST Electronically Signed on 03/29/25 08:19 PM Cookie Singletary RN * Camron Tamayo DO: MODIFY, PERFORM, MODIFY, MODIFY Event Display: Discharge/Transfer Note Hospital Authored Date: Patient: ??BRIT NAJERA ? Age:??65 Years?Sex:??Female?:??1960?LOC:??[facility]?? Patient Information Discharge Location: D5A Primary Care Physician: Do Hastings MD Admit Date/Time: 03/26/2025 21:57 Discharge Disposition Discharge Disposition: Home: No Services Discharge Diagnosis New onset seizure (R56.9) Adenocarcinoma of left lung (C34.92) High anion gap metabolic acidosis (E87.29) Lactic acidosis (E87.20) Hypercalcemia (E83.52) Hypokalemia (E87.6) HTN (hypertension) (I10) Malnutrition related to chronic disease (E46) Hypercalcemia (E83.52) Metastasis to brain (C79.31) _ Discharge Medications Acetaminophen (acetaminophen 325 mg oral tablet)??650 Milligram By Mouth Every 4 hours as needed not to exceed 4000 mg/day Pain , Mild Amlodipine (amLODIPine 2.5 mg oral tablet)??2.5 Milligram 1 tablet By Mouth Daily Dexamethasone (dexamethasone 4 mg oral tablet)??1 tab(s) 4 Milligram By Mouth Every 6 hours for 7 Days levETIRAcetam (Keppra 500 mg oral tablet)??500 Milligram By Mouth 2 times a day Oxycodone (oxyCODONE 5 mg oral tablet)??2.5 Milligram By Mouth Every 6 hours as needed Pain , Severe ? Discharge Medications New Acetaminophen (acetaminophen 325 mg oral tablet)650 Milligram Oral every 4 hours as needed Pain , Mild. not to exceed 4000 mg/day. Refills: 0. Dexamethasone (dexamethasone 4 mg oral tablet)1 tab(s) Oral every 6 hours for 7 Days. Refills: 0. levETIRAcetam (Keppra 500 mg oral tablet)500 Milligram Oral twice a day. Refills: 0. Oxycodone (oxyCODONE 5 mg oral tablet)2.5 Milligram Oral every 6 hours as needed Pain , Severe. Refills: 0. Unchanged Amlodipine (amLODIPine 2.5 mg oral tablet)1 tab(s) Oral Daily. Refills: 0. PCP Follow-Up/Heads-Up -outpt chemoport placement needed by IR -outpt??for initiation of chemotherapy -outpatient radiation after chemotherapy -f/u with pcp on 03/30 -dexa 4 mg q4 and levetiractem 500 mg BID started -oxycodone and tylenol for pain rx f/u on pain -hypercalcemia will need f/u with oncology Future Appointments 2024 9:00 AM EST ?? Type: Interventional Pulmonary New With: Isela FRANK, Charu Cage Where: [facility] [address] [place] [address]- Status: Pending Hospital Course ?65 years old female with a medical history of??recently diagnosed??left lung node with??generalized tonic-clonic seizures.??In the ED patient had a witnessed generalized tonic-clonic seizure and was treated with IV levetiracetam loading dose her CT scan was negative for any acute pathologies.??MRI brain with and without contrast showed numerous enhancing supratentorial and infratentorial lesions consistent with metastatic disease with possible leptomeningeal involvement and mild nonspecific right frontal white matter edema/gliosis.?? Routine EEG consistent with bilateral intermittent arrhythmic slowing, consistent with nonspecific subacute or chronic cerebral dysfunction. No epileptiform activity was seen.?? Her focal seizures with secondary generalization are most likely provoked byher metastatic lesions.?? Patient started on Keppra 500 mg twice daily and has been doing well on current dose without any repeat episodes.?? She will need to go outpatient to have chemoport placed and then have chemotherapy followed by radiation therapy. Oncology is aware and to schedule outpt follow up.?? Pt also scheduled to see PCP tomorrow. Has PET scan scheduled for 04/04 as well. ?? New onset seizure (R56.9):?? Patient presented to ER due to twitching/spasm of right lower extremity and??had a generalized tonic-clonic seizure in the ER Patient reports that??she might have??a seizure at home as well??as she passed out while??sitting in sofa Patient recently diagnosed with??left-sided lung cancer CT head was done that did not show any evidence of acute abnormality Labs showed??normal sodium, normal mag, calcium level??12.2, Utox + for benzos - received in ED. MRI brain with and without contrast showed numerous enhancing supratentorial and infratentorial lesions consistent with metastatic disease with possible leptomeningeal involvement and mild nonspecific right frontal white matter edema/gliosis.?? Routine EEG consistent with bilateral intermittent arrhythmic slowing, consistent with nonspecific subacute or chronic cerebral dysfunction. No epileptiform activity was seen.?? Her focal seizures with secondary generalization are most likely provoked byher metastatic lesions.?? Patient started on Keppra 500 mg twice daily and has been doing well on current dose without any repeat episodes. ?? Recommendations -continue??Keppra 500 mg twice daily -f/u neurology outpt -outpt radiation and chemotherapy scheduled - Patient was advised to follow the rules and regulations of state ??[place]??with regard to driving and to avoid baths or swimming alone ?? Adenocarcinoma of left lung (C34.92):??Patient was recently diagnosed with a left-sided lung cancer ?? Recommendations -Oncology aware and will see pt outpt. -Pt to have chemoport placed. -Patient is scheduled?? to undergo PET scan on April 04,??appointment with pulmonology on ??and PCP??on ? Malnutrition Patient appears frail and cachectic.?? She reports not eating much??over the last year. ??She reports her taste has changed and everything??has a foul taste to it.?? She has lost a lot of weight.?? Has temporal wasting.?? May be related to??recent cancer diagnosis.?? Refuses protein??shake nutrition at this time. ?? Recommendations F/u with pcp ?? High anion gap metabolic acidosis (E87.29):??Etiology: Due to seizure Resolved with IV fluids ?? Hypokalemia (E87.6):??Repleted now WNL ?? HTN (hypertension) (I10):??Resume home meds amlodipine ?? Hypercalcemia (E83.52):??Etiology: Likely due to malignancy Labs showed calcium 11.1 S/p 1 L IV fluids and 4 mg zeoledronic acid IV ?? Recommendations -Pt to f/u with oncology outpt Objective . Physical Exam Constitutional: Alert, in no distress.?? Mental Status: Oriented to person, place, time, and situation. Eyes: Pupils are equal, round and reactive to light. Anicteric. Non-injected conjunctiva. Ear, Nose and Throat: Oropharynx clear, mucous membranes moist. Respiratory: Clear to auscultation. No wheezing, rales or rhonchi. Cardiovascular: S1 S2 regular. No murmurs, rubs or gallops. No LE swelling.?? Gastrointestinal: Abdomen soft, non-tender, non-distended. Genitourinary: No costovertebral angle, flank, or suprapubic??tenderness. Neurologic: Cranial nerves II-XII grossly intact. No focal neurological deficits. Moves all extremities spontaneously. Sensation intact bilaterally. Skin: Several lipomatous lesions on back Musculoskeletal: Frail/cachectic appearing.??Lower back??pain to palpation.?? Heme/Lymphatics/Immun: Palpation of neck reveals no swelling or tenderness of neck nodes. Psychiatric: Normal mood and affect Consultants Oncology Pending Results Add On Lab Order ordered on 03/26/2025 Patient Education Titles WebMD Ignite Patient Education - Levetiracetam?? Patient Instructions In the emergency department you were found to have a witnessed seizure??and your??MRI of your brainshowed lesions that are thought to be the provoking agent for your seizures.?? You were started on an antiseizure medication known as Keppra??500 mg which you??will need to take twice a day??and??canfollow-up with neurology outpatient.?? You cant drive for 6 months because of these seizures. You will be following with her primary care physician tomorrow on 03/30??and you will need to follow-up with??interventional radiology??to help schedule??port placement for you receiving chemotherapy. ??Yesika then need to follow-up with the medical oncology team??in regard to??getting your chemotherapy??and then afterwards??with the radiation team??to discuss radiation.?? You are also??given??steroids??which you will need to take this is for??the swelling??around these lesions that was found??on your MRI??and this should help reduce??that swelling. The name of the steroid is dexamethasone and yesika need to take 4 mg every 6 hours. You were also given oxycodone which is an opioid medication for pain which you can take for severe pain and tylenol which you can take for mild to moderate pain.Opioid medications can make you drowsy and taking more than recommended can lead to respiratory depression please take 2.5 mg every 6 hours as needed for severe pain.?? Home Health Face to Face ^HomeHealthFTF Results Discharge Labs BLOOD COUNT & DIFF WBC 8.4 k/mm3 ()?? 03/29/2025 08:58 RBC 4.78 m/mm3 ()?? 03/29/2025 08:58 Hgb 13.8 Gm/dL ()?? 03/29/2025 08:58 Hct 40.3 % ()?? 03/29/2025 08:58 MCV 84.3 femtoliters ()?? 03/29/2025 08:58 MCH 28.9 pg ()?? 03/29/2025 08:58 MCHC 34.2 Gm/dL ()?? 03/29/2025 08:58 Platelet Count 421 k/mm3 ()?? 03/29/2025 08:58 RDW-SD 38.7 femtoliters ()?? 03/29/2025 08:58 MPV 9.5 femtoliters ()?? 03/29/2025 08:58 Nucleated RBC (Automated) 0.0 #/100 WBC'S ()?? 03/29/2025 08:58 Abs. NRBC 0.0 k/mm3 ()?? 03/29/2025 08:58 Abs. Neut 11.6 k/mm3 (High)?? 03/26/2025 16:30 Abs. Lymph 2.8 k/mm3 ()?? 03/26/2025 16:30 Abs. [place] 0.9 k/mm3 ()?? 03/26/2025 16:30 Abs. Eo 0.1 k/mm3 ()?? 03/26/2025 16:30 Abs. Baso 0.1 k/mm3 ()?? 03/26/2025 16:30 Neut % 73.9 % ()?? 03/26/2025 16:30 Lymph % 18.1 % ()?? 03/26/2025 16:30 [place] % 5.8 % ()?? 03/26/2025 16:30 Eos % 0.8 % ()?? 03/26/2025 16:30 Baso % 0.8 % ()?? 03/26/2025 16:30 Hemoglobin (POC) POC Cartridge 14.3 Gm/dL ()?? 03/26/2025 16:20 Hematocrit (POC) POC Cartridge 42 % ()?? 03/26/2025 16:20 Imm Gran 0.6 % ()?? 03/26/2025 16:30 Abs. Imm Gran 0.1 k/mm3 ()?? 03/26/2025 16:30 ?? BLOOD GAS pH Venous (POC) POC Cartridge 7.19 (Low)?? 03/26/2025 16:20 pCO2 Venous (POC) POC Cartridge 47.6 mm Hg ()?? 03/26/2025 16:20 pO2 Venous (POC) POC Cartridge 110 mm Hg (High)?? 03/26/2025 16:20 Est Bicarbonate (POC) POC Cartridge 18.0 mmol/L (Low)?? 03/26/2025 16:20 % O2 Sat Venous (POC) POC Cartridge 97 ()?? 03/26/2025 16:20 Base Excess (POC) POC Cartridge NEGATIVE 10 ()?? 03/26/2025 16:20 Specimen Type - Blood Gas VENOUS ()?? 03/26/2025 16:20 ? CHEM GENERAL Sodium 135 mmol/L ()?? 03/29/2025 08:59 Potassium 3.9 mmol/L ()?? 03/29/2025 08:59 Chloride 96 mmol/L (Low)?? 03/29/2025 08:59 Bicarbonate Level 30 mmol/L (High)?? 03/29/2025 08:59 Anion Gap 9 mmol/L ()?? 03/29/2025 08:59 Sodium (POC) POC Cartridge 137 mmol/L ()?? 03/26/2025 16:20 Potassium (POC) POC Cartridge 3.3 mmol/L (Low)?? 03/26/2025 16:20 Glucose Level 112 mg/dL (High)?? 03/29/2025 08:59 Glucose (POC) POC Cartridge 195 (High)?? 03/26/2025 16:20 Glucose, POC 115 mg/dL (High)?? 03/28/2025 21:11 BUN 15 mg/dL ()?? 03/29/2025 08:59 Creatinine-Blood 0.48 mg/dL (Low)?? 03/29/2025 08:59 Estimated GFR Creatinine 104 ML/MIN/1.73 M2 ()?? 03/29/2025 08:59 Calcium 11.1 mg/dL (High)?? 03/29/2025 08:59 Ionized Calcium (POC) POC Cartridge 1.50 mmol/L (Critical)?? 03/26/2025 16:20 Phosphorus 3.3 mg/dL ()?? 03/29/2025 08:59 Magnesium 2.0 mg/dL ()?? 03/29/2025 08:59 Protein, Total 7.7 Gm/dL ()?? 03/26/2025 16:30 Albumin 4.5 Gm/dL ()?? 03/26/2025 16:30 AG Ratio 1.4 ()?? 03/26/2025 16:30 Alkaline Phosphatase 73 units/L ()?? 03/26/2025 16:30 AST (SGOT) 21 units/L ()?? 03/26/2025 16:30 ALT (SGPT) 13 units/L ()?? 03/26/2025 16:30 Bilirubin, Total 0.3 mg/dL ()?? 03/26/2025 16:30 Lactate 1.1 mmol/L ()?? 03/26/2025 20:22 ? ENDOCRINE/TUMOR MARKER TSH 1.59 uIU/mL ()?? 03/26/2025 16:30 ? MISC. CHEMISTRY Hold Green Top SPECIMEN DISCARDED AFTER 1 WEEK ()?? 03/26/2025 20:22 ? TOXICOLOGY/TDM Barbiturate Screen, Urine NONE DETECTED ()?? 03/26/2025 23:52 Cannabinoid Screen, Urine NONE DETECTED ()?? 03/26/2025 23:52 Cocaine Metabolite Screen, Urine NONE DETECTED ()?? 03/26/2025 23:52 Benzodiazepine Screen, Urine POSITIVE (Abnormal)?? 03/26/2025 23:52 Amphetamine Screen, Urine NONE DETECTED ()?? 03/26/2025 23:52 Opiate Screen, Urine NONE DETECTED ()?? 03/26/2025 23:52 ?? UA/URINALYSIS Appear/Color, Urine LIGHT YELLOW ()?? 03/26/2025 23:30 Specific Mallory, Urine 1.009 ()?? 03/26/2025 23:30 pH, Urine 7.5 ()?? 03/26/2025 23:30 Albumin, Urine TRACE (Abnormal)?? 03/26/2025 23:30 Glucose, Urine NEGATIVE ()?? 03/26/2025 23:30 Ketones, Urine NEGATIVE ()?? 03/26/2025 23:30 Bilirubin, Urine NEGATIVE ()?? 03/26/2025 23:30 Hemoglobin, Urine NEGATIVE ()?? 03/26/2025 23:30 Nitrite, Urine NEGATIVE ()?? 03/26/2025 23:30 Leukocyte, Urine NEGATIVE ()?? 03/26/2025 23:30 Urobilinogen NORMAL mg/dL ()?? 03/26/2025 23:30 WBC's, Urine NONE SEEN /HPF ()?? 03/26/2025 23:30 RBC's, Urine NONE SEEN /HPF ()?? 03/26/2025 23:30 Amorphous Crystals SLIGHT /HPF ()?? 03/26/2025 23:30 Hold Urine Culture Testing available 48 hours from time of collection. ()?? 03/26/2025 23:30 ? URINE OTHER Est Creatinine Clearance 83.13 mL/min ()?? 03/28/2025 09:26 ? VIROLOGY Influenza A PCR NEGATIVE ()?? 03/26/2025 19:53 Influenza B PCR NEGATIVE ()?? 03/26/2025 19:53 RSV PCR NEGATIVE ()?? 03/26/2025 19:53 COVID-19 PCR Specimen Source NASAL ()?? 03/26/2025 19:53 COVID-19 PCR Result NEGATIVE ()?? 03/26/2025 19:53 ? 36 ??minutes spent on discharge ?? Patient care discussed with Dr. Citlalli Tamayo, Internal Medicine PGY-3 Pager [phone] Electronically Signed on 03/29/25 03:11 PM Camron Tamayo DO * Edmund Lennon MD: PERFORM Event Display: Discharge/Transfer Note Hospital Authored Date: Attending Attestation:??I have seen and evaluated this patient. ??I have discussed the case and itsmanagement with the resident and agree with the findings and plan as documented in the resident???snote. Electronically Signed on 03/29/25 09:20 PM Ana Paula Lennon MDakumar * Hyader KENDRICK, Cookie Royal: PERFORM Event Display: Patient Education/Instruction Authored Date: Inpatient Adult Discharge Instructions. [address] [address] Name: BRIT NAJERA : 1960?? Visit: 03/26/2025 21:57?? Current Date: 03/29/2025 17:14 ?? Account: [id number]?? Inpatient Adult Discharge Instructions We would like to thank you for allowing us to assist you with your healthcare needs. The following includes patient education materials and information regarding your injury/illness. Our entire staffstrives to provide an excellent experience for our patients and their families. PLEASE ENSURE YOU FOLLOW-UP PER THE INSTRUCTIONS BELOW! ?? YOUR OPINION IS IMPORTANT TO US! Please complete the survey you may receive by mail or email. Your feedback will be used to make improvements to the healthcare experiences of our patients and their families. Surveys are administered by [employer] ?? If further treatment with your primary care physician or another doctor is recommended, it is important for you to keep the appointment. Call your primary care physician or return to the Emergency Department immediately if your condition worsens, fails to improve, or new symptoms develop. If you need to find a doctor, you can call [facility] Link for a referral at [phone] or toll free at [phone] ([phone]) or log in to [email or web address].. ?? [facility], in keeping with [facility] guidance, no longer requires face masks for staff, patientsor visitors in most situations. Similiar to time spent indoors at other locations, there is the chance that you were exposed to repiratory viruses during your time with us (such as flu or COVID-19). If you develop symptoms concerning for a viral respiratory infection, please seek testing (and treatment if indicated) from your medical provider or home test kit. ?? You can view and manage your care through the patient portal or by using a health care juan of your choosing. [employer] is a website that allows you to securely view your medical information including your hospital discharge summary, office visit summaries, medications and follow-up visits. You can also request appointments, renew medications, and request access to your medical information using a health care juan of your choosing, or just ask a question. You are entitled to know the individuals who participated in your treatment. This information is available within your medical record and will be provided upon your request. You can enroll at [email or web address] or register d uring your next office visit. You have been discharged from [facility], Patient Care Unit: D5A??. If you have any questions regarding these instructions, including results of studies pending, afteryou leave, please call us and we will be happy to assist you 12/11. [facility] Your Care Team Attending Physician Edmund Lennon MD?? Consulting Providers Edmund Lennon MD?? Discharging Providers Camron Tamayo DO Reason for Your Visit New onset seizure?? Your Diagnosis New onset seizure Adenocarcinoma of left lung High anion gap metabolic acidosis Lactic acidosis Hypercalcemia Hypokalemia HTN (hypertension) Hypercalcemia Malnutrition related to chronic disease Metastasis to brain Tests Performed Below is a partial list of the tests performed during your hospitalization. You may have had other tests and procedures not included in this list. Please discuss all test results with your provider. Amphetamine Urine Screen Barbiturate Urine Screen BASE EXCESS POC CARTRIDGE Basic Metabolic Panel Benzodiazepine Urine Screen CALCIUM IONIZED POC CART Cannabinoid Urine Screen CBC CBC w/ Differential Cocaine Urine Screen Comprehensive Metabolic Panel COVID-19, RSV, and Flu A/B, Rapid PCR GLUCOSE POC GLUCOSE POC CARTRIDGE HEMATOCRIT POC CARTRIDGE HEMOGLOBIN POC CARTRIDGE HOLD GREEN TUBE Lactate Level Lactic Acid Level Magnesium Level Opiate Screen Urine Phosphorus Level POTASSIUM POC CARTRIDGE SODIUM POC CARTRIDGE TSH with T4 Reflex (Adults Only) Urinalysis w/hold for Urine Culture VBG POC CARTRIDGE CT Head/Brain W/O Contrast MRI Brain W+W/O Contrast XR Chest Portable Add On Lab Order (Lab Add On Order)?? Amphetamine Urine Screen?? Barbiturate Urine Screen?? Base Excess (Lab) POC Cartridge (BASE EXCESS POC CARTRIDGE)?? Basic Metabolic Panel?? Benzodiazepine Urine Screen?? CBC?? CBC w/ Differential?? COVID-19, RSV, and Flu A/B, Rapid PCR?? CT Head/Brain W/O Contrast?? Cannabinoid Urine Screen?? Cocaine Urine Screen?? Comprehensive Metabolic Panel?? Glucose (Lab) POC Cartridge (GLUCOSE POC CARTRIDGE)?? Glucose POC?? Hematocrit (Lab) POC Cartridge (HEMATOCRIT POC CARTRIDGE)?? Hemoglobin (Lab) POC Cartridge (HEMOGLOBIN POC CARTRIDGE)?? Hold Green Top Tube (HOLD GREEN TUBE)?? Ionized Calcium(POC) POC Cartridge (CALCIUM IONIZED POC CART)?? Lactic Acid Level (Lactate Level)?? MRI Brain W+W/O Contrast?? Magnesium Level?? Opiate Screen Urine?? Phosphorus Level?? Potassium (Lab) POC Cartridge (POTASSIUM POC CARTRIDGE)?? Sodium (Lab) POC Cartridge (SODIUM POC CARTRIDGE)?? TSH with T4 Reflex (Adults Only)?? Urinalysis w/hold for Urine Culture?? VBG (Lab) POC Cartridge (VBG POC CARTRIDGE)?? Chest Portable (XR Chest Portable)?? Primary Care Provider Do Hastings MD? Advance Directive Health Care Proxy on File Yes - Health Care Proxy Patient has a Designated Caregiver: No Discharge Vitals Temperature: 98.1 DegF Height: 160 cm Pulse Rate:??96 bpm??High Weight: 46.3 kg Respiratory Rate: 16 br/min Body Mass Index:??18.09 kg/m2??Low Systolic Blood Pressure: 125 mm Hg Body surface area: 1.43 Diastolic Blood Pressure: 60 mm Hg ?? Oxygen Saturation: 98 % ?? Studies Pending All studies ordered during this hospital stay have been completed unless listed below. Please discuss all pending results with your provider listed above in these instructions. ?? Add On Lab Order (Lab Add On Order)?? What to do next Instructions From Your Doctor In the emergency department you were found to have a witnessed seizure??and your??MRI of your brainshowed lesions that are thought to be the provoking agent for your seizures.?? You were started on an antiseizure medication known as Keppra??500 mg which you??will need to take twice a day??and??canfollow-up with neurology outpatient.?? You cant drive for 6 months because of these seizures. You will be following with her primary care physician tomorrow on 03/30??and you will need to follow-up with??interventional radiology??to help schedule??port placement for you receiving chemotherapy. ??Yesika then need to follow-up with the medical oncology team??in regard to??getting your chemotherapy??and then afterwards??with the radiation team??to discuss radiation.?? You are also??given??steroids??which you will need to take this is for??the swelling??around these lesions that was found??on your MRI??and this should help reduce??that swelling. The name of the steroid is dexamethasone and yesika need to take 4 mg every 6 hours. You were also given oxycodone which is an opioid medication for pain which you can take for severe pain and tylenol which you can take for mild to moderate pain.Opioid medications can make you drowsy and taking more than recommended can lead to respiratory depression please take 2.5 mg every 6 hours as needed for severe pain.? Please call [facility] if you develop uncontrolled movements or concern for recurrent seizures to discuss your dosage and timing of the follow up appt.? Orders? 03/29/25 15:11:00 EST?? Prescriptions??, ??03/29/25 15:11:00 EST?? Scheduled Follow-Up Appointments 2024 9:00 AM EST ?? Type: Interventional Pulmonary New With: Isela FRANK, Charu Cage Where: [facility] [address] [place] [address]- Status: Pending Discharge Medications RBIT NAJERA :1960 Visit Date:03/26/2025 Medications: Please continue your medications until treatment is completed or stopped by your provider. Medications not listed below should be discontinued. Discuss any questions related to medications with your provider. What How Much When Instructions Next Dose New Acetaminophen (acetaminophen 325 mg oral tablet) 650 Milligram Oral Every 4 hours as needed for Pain , Mild Special Instructions: not to exceed 4000 mg/ day Ordering Physician: Camron Tamayo DO ?? Pickup at [place] [id number] 03/29/2025 7pm New Dexamethasone (dexamethasone 4 mg oral tablet) 1 tab(s) Oral Every 6 hours Duration: 7 Days Ordering Physician: Camron Tamayo DO Pickup at [place] [address] 03/29/2025 9pm New levETIRAcetam (Keppra 500 mg oral tablet) 500 Milligram Oral Twice a day Ordering Physician: Camron Tamayo DOup at [facility] 3 03/29/2025 8pm New Oxycodone (oxyCODONE 5 mg oral tablet) 2.5 Milligram Oral Every 6 hours as needed for Pain , Severe Ordering Physician: Camron Tamayo DO Pickup at [place] [address] may take anytime Unchanged Amlodipine (amLODIPine 2.5 mg oral tablet) 1 tab(s) Oral Daily Ordering Physician: Markel Joseph MD 03/30/2025 8am Pharmacy Information [facility] 3: [address] [place] [address] [phone] Prescription Given During Visit Acetaminophen (acetaminophen 325 mg oral tablet) - 650 mg, By Mouth, Every 4 hours, # 30 tablet, 0 Refills, not to exceed 4000 mg/day, [facility] [address], [address] [place] [id number]?? Dexamethasone (dexamethasone 4 mg oral tablet) - 1 tablet = 4 mg, By Mouth, Every 6 hours, # 28 tablet, 0 Refills, [facility] [address], [address] [place] [address] [id number]?? Oxycodone (oxyCODONE 5 mg oral tablet) - 2.5 mg, By Mouth, Every 6 hours, # 7 tablet, 0 Refills, [facility], [address] [place] [address] [id number]?? levETIRAcetam (Keppra 500 mg oral tablet) - 500 mg, By Mouth, 2 times a day, # 60 tablet, 0 Refills, [facility] [address], [address] [place] [id number]?? Laboratory Results Below is a partial list of the most recent Laboratory test results done prior to this discharge. You may have had other tests and procedures not included in this list. Please discuss all test resultswith your provider. Est Creatinine Clearance - 83.13 mL/min (03/28/2025) Amphetamine Urine Screen (03/26/2025) ???Amphetamine Screen, Urine - NONE DETECTED Barbiturate Urine Screen (03/26/2025) ???Barbiturate Screen, Urine - NONE DETECTED BASE EXCESS POC CARTRIDGE (03/26/2025) ???Base Excess (POC) POC Cartridge - NEGATIVE 10 Basic Metabolic Panel (03/29/2025) ???Sodium - 135 mmol/L???Potassium - 3.9 mmol/L???Chloride - 96 mmol/L???Bicarbonate Level - 30 mmol/L???Anion Gap - 9 mmol/L???Glucose Level - 112 mg/dL???BUN - 15 mg/dL???Creatinine-Blood - 0.48 mg/dL???Estimated GFR Creatinine - 104 ML/MIN/1.73 M2???Calcium - 11.1 mg/dL Benzodiazepine Urine Screen (03/26/2025) ???Benzodiazepine Screen, Urine - POSITIVE CALCIUM IONIZED POC CART (03/26/2025) ???Ionized Calcium (POC) POC Cartridge - 1.50 mmol/L Cannabinoid Urine Screen (03/26/2025) ???Cannabinoid Screen, Urine - NONE DETECTED CBC (03/29/2025) ???WBC - 8.4 k/mm3???RBC - 4.78 m/mm3???Hgb - 13.8 Gm/dL???Hct - 40.3 %???MCV - 84.3 femtoliters???MCH - 28.9 pg???MCHC - 34.2 Gm/dL???Platelet Count - 421 k/mm3???RDW-SD - 38.7 femtoliters???MPV - 9.5 femtoliters???Nucleated RBC (Automated) - 0.0 #/100 WBC'S???Abs. NRBC - 0.0 k/mm3 CBC w/ Differential (03/26/2025) ???WBC - 15.7 k/mm3???RBC - 4.73 m/mm3???Hgb - 13.1 Gm/dL???Hct - 41.9 %???MCV - 88.6 femtoliters???MCH - 27.7 pg???MCHC - 31.3 Gm/dL???Platelet Count - 485 k/mm3???RDW-SD - 42.2 femtoliters???MPV - 9.4 femtoliters???Nucleated RBC (Automated) - 0.0 #/100 WBC'S???Abs. NRBC - 0.0 k/mm3???Abs. Neut - 11.6 k/mm3???Abs. Lymph - 2.8 k/mm3???Abs. [place] - 0.9 k/mm3???Abs. Eo - 0.1 k/mm3???Abs. Baso - 0.1 k/mm3???Neut % - 73.9 %???Lymph % - 18.1 %???[place] % - 5.8 %???Eos % - 0.8 %???Baso % - 0.8 %???Imm Gran - 0.6 %???Abs. Imm Gran - 0.1 k/mm3 Cocaine Urine Screen (03/26/2025) ???Cocaine Metabolite Screen, Urine - NONE DETECTED Comprehensive Metabolic Panel (03/26/2025) ???Sodium - 138 mmol/L???Potassium - 3.3 mmol/L???Chloride - 95 mmol/L???Bicarbonate Level - 16 mmol/L???Anion Gap - 27 mmol/L???Glucose Level - 193 mg/dL???BUN - 12 mg/dL???Creatinine-Blood - 0.54 mg/dL???Estimated GFR Creatinine - 101 ML/MIN/1.73 M2???Calcium - 12.0 mg/dL???Protein, Total - 7.7 Gm /dL???Albumin - 4.5 Gm/dL???AG Ratio - 1.4???Alkaline Phosphatase - 73 units/L???AST (SGOT) - 21 units/L???ALT (SGPT) - 13 units/L???Bilirubin, Total - 0.3 mg/dL COVID-19, RSV, and Flu A/B, Rapid PCR (03/26/2025) ???Influenza A PCR - NEGATIVE???Influenza B PCR - NEGATIVE???RSV PCR - NEGATIVE???COVID-19 PCR Specimen Source - NASAL???COVID-19 PCR Result - NEGATIVE GLUCOSE POC (03/28/2025) ???Glucose, POC - 115 mg/dL GLUCOSE POC CARTRIDGE (03/26/2025) ???Glucose (POC) POC Cartridge - 195 HEMATOCRIT POC CARTRIDGE (03/26/2025) ???Hematocrit (POC) POC Cartridge - 42 % HEMOGLOBIN POC CARTRIDGE (03/26/2025) ???Hemoglobin (POC) POC Cartridge - 14.3 Gm/dL HOLD GREEN TUBE (03/26/2025) ???Hold Green Top - SPECIMEN DISCARDED AFTER 1 WEEK Lactate Level (03/26/2025) ???Lactate - 1.1 mmol/L Lactic Acid Level (03/26/2025) ???Lactate - 14.4 mmol/L Magnesium Level (03/29/2025) ???Magnesium - 2.0 mg/dL Opiate Screen Urine (03/26/2025) ???Opiate Screen, Urine - NONE DETECTED Phosphorus Level (03/29/2025) ???Phosphorus - 3.3 mg/dL POTASSIUM POC CARTRIDGE (03/26/2025) ???Potassium (POC) POC Cartridge - 3.3 mmol/L SODIUM POC CARTRIDGE (03/26/2025) ???Sodium (POC) POC Cartridge - 137 mmol/L TSH with T4 Reflex (Adults Only) (03/26/2025) ???TSH - 1.59 uIU/mL Urinalysis w/hold for Urine Culture (03/26/2025) ???Appear/Color, Urine - LIGHT YELLOW???Specific Mallory, Urine - 1.009???pH, Urine - 7.5???Albumin, Urine - TRACE???Glucose, Urine - NEGATIVE???Ketones, Urine - NEGATIVE???Bilirubin, Urine - NEGATIVE???Hemoglobin, Urine - NEGATIVE???Nitrite, Urine - NEGATIVE???Leukocyte, Urine - NEGATIVE???Urobilin ogen - NORMAL???WBC's, Urine - NONE SEEN???RBC's, Urine - NONE SEEN???Amorphous Crystals - SLIGHT???Hold Urine Culture - Testing available 48 hours from time of collection. VBG POC CARTRIDGE (03/26/2025) ???pH Venous (POC) POC Cartridge - 7.19???pCO2 Venous (POC) POC Cartridge - 47.6 mm Hg???pO2 Venous(POC) POC Cartridge - 110 mm Hg???Est Bicarbonate (POC) POC Cartridge - 18.0 mmol/L???% O2 Sat Venous (POC) POC Cartridge - 97???Specimen Type - Blood Gas - VENOUS Allergies (NKA means No Known Allergies) Demerol Problems Active Problems??(1) Underweight?? Education Materials Below is the list of Educational Leaflet Providered with your Discharge Instructions. [employer] Patient Education - Oxycodone?? [employer] Patient Education - Dexamethasone?? [employer] Patient Education - Acetaminophen?? [employer] Patient Education - Discharge Instructions for Hypercalcemia?? [employer] Patient Education - Lung Cancer: Understanding the Basics?? [employer] Patient Education - What Is Lung Cancer??? [employer] Patient Education - Recurrent Seizure (Adult)?? [employer] Patient Education - Safety During a Seizure?? [employer] Patient Education - First Aid: Seizures?? [employer] Patient Education - Treating Seizures: Medicines?? [employer] Patient Education - Self-Care for Seizures?? [employer] Patient Education - Levetiracetam?? Valuables and Belongings I fully understand and agree that [facility] accepts no responsibility for all my personal property including clothing, toilet articles, radios, jewelry, dentures, hearing aids, rings, money, or any other property that is in my possession or is brought to me after admission. I understand certain valuables may be placed in a hospital safe for a short period of time. I understand that the hospital is not liable for loss or damage due to accident, fire, or other natural occurrence while said property is in the safe. I accept full responsibility for any personal property that I keep with me, and will not hold the hospital responsible in case of loss or disappearance. I acknowledge that i have been encouraged to send valuables and belongings home. ?? Review of Valuable and Belonging List: With patient Date for Pt to Sign Valuables/Belongings: 03/27/25 01:27:00 ?? Other Discharge Information ? Pulmonary Rehab Status?? Pulmonary Rehab Discharge Status?? Respiratory Rate: 16 br/min ? Common Emergency Awareness Tips IS IT A STROKE? Act FAST and Check for these signs: FACE Does the face look uneven? ARM Does one arm drift down? SPEECH Does their speech sound strange? TIME Call at any sign of stroke ?? Heart Attack Signs Chest discomfort: Most heart attacks involve discomfort in the center of the chest and lasts more than a few minutes, or goes away and comes back. It can feel like uncomfortable pressure, squeezing, fullness or pain. Discomfort in upper body: Symptoms can include pain or discomfort in one or both arms, back, neck, jaw or stomach. Shortness of breath: With or without discomfort. Other signs: Breaking out in a cold sweat, nausea, or lightheaded. Remember, MINUTES DO MATTER. If you experience any of these heart attack warning signs, call to get immediate medical attention! ?? Smoking can increase your chances of developing chronic health problems and can cause harmful effects to other family members in your house. If you smoke, you are strongly encouraged to quit. Please call [facility] [employer] [facility] at [phone] or [phone] ([phone]) or log in to [email or web address] for referrals to smoking cessation programs. ?? 420 Suicide & Crisis Lifeline is available 12/11 if you or someone you know needs to find a reason to keep living. By calling 321 you'll be connected to a skilled, trained counselor at a crisis center in your area. INPATIENT DISCHARGE INSTRUCTIONS SIGNATURE BRIT SENA Location:[facility] Registration Date and Time:03/26/2025 21:57 EST Primary Care Physician: Do Hastings MD, Attending Physician: Citlalli LÓPEZ, Edmund, I BRIT NAJERA, have received the above patient education materials/instructions and have verbalized understanding. If ambulance or transport services are being used I further acknowledge being given a choice of service. ?? If you need to contact me, please call me at this number: . Patient/Labor Relations Representative Name: Patient/Labor Relations Representative Signature: Relationship to Patient: Witness Name/Signature: Date: * Cookie Singletary RN: PERFORM Event Display: Patient Education Leaflets Authored Date: [id number] Oxycodone ?? [id number] Oxycodone IMPORTANT WARNING: Oxycodone may be habit-forming. Do not take more or less of it, take it more often, stop taking it suddenly, or take it in a different way than directed by your doctor. Tell your doctor if you or anyone in your family drinks or has ever drunk large amounts of alcohol, uses or has ever used street drugs, or has overused prescription medications, or has had an overdose, or if you have or have ever had depression or another mental illness. Oxycodone may cause serious or life-threatening breathing problems, especially during the first 24 to 72 hours of your treatment and any time your dose is increased. If you experience any of the following symptoms, call your doctor immediately or get emergency medical treatment: slowed breathing, long pauses between breaths, or shortness of breath. Oxycodone may harm or cause to other people who take your medication, especially children. Keep oxycodone in a safe place so that no one else can take it accidentally or on purpose. Taking certain other medications, drinking alcohol, or using street drugs with oxycodone may increase the risk of serious or life-threatening breathing problems, sedation, or coma. Tell your doctor and pharmacist what other prescription and nonprescription medications, vitamins, nutritional supplements, and herbal products you are taking or plan to take. Your doctor may need to change the doses of your medication and will monitor you carefully. If you are taking the oxycodone extended-release tablets, swallow them whole; do not chew, break, divide, crush, or dissolve them.as you may receive too much oxycodone at once instead of slowly over 12 hours. This may cause serious problems, including overdose and . Be sure that you know the dose in milliliters that your doctor has prescribed. Use the dosing cup, oral syringe, or dropper provided with your medication to carefully measure the number of milliliters of solution that your doctor prescribed. Ask your doctor or pharmacist if you have any questions about how to measure your dose or how much medication you should take. You may experience serious or life-threatening side effects if you take a different amount of medication than prescribed by your doctor. Tell your doctor if you are or plan to become . If you take oxycodone regularly during your , your baby may experience life- threatening withdrawal symptoms after . Your doctor or pharmacist will give you the Medication Guide with your prescription. Read the information carefully and ask your doctor or pharmacist if you have any questions. You can also visit the (https://www.fda.gov/Drugs/DrugSafety/eqc751196.htm) or the [employer] website to obtain the Medication Guide. Talk to your doctor about the risks of taking oxycodone. WHY is this medicine prescribed? Oxycodone is used to relieve severe pain. Oxycodone is in a class of medications called opiate (narcotic) analgesics. It works by changing the way the brain and nervous system respond to pain. HOW should this medicine be used? Oxycodone comes as a solution (liquid), a tablet, a capsule, an extended-release (long-acting) tablet, and an extended-release capsule to take by mouth. The solution, tablet, and capsule are taken with or without food every 4 to 6 hours as needed for pain. The extended-release tablets and capsules are prescribed when pain relief is needed around the clock and are taken every 12 hours. The capsules should be taken with food but the tablets can be taken with or without food. If you are taking the extended-release tablets, swallow the tablets one at a time with plenty of water. Swallow the tablet right after putting it in your mouth. Do not presoak, wet, or lick the tablets before you put them in your mouth. Do not chew or crush extended-release tablets. If you have trouble swallowing extended-release capsules, carefully open the capsule and sprinkle the contents on soft foods such as applesauce, pudding, yogurt, ice cream, or jam. Consume the mixture immediately. Dispose of the empty capsule shells right away by flushing them down a toilet. Do notstore the mixture for future use. If you have a feeding tube, the extended-release capsule contents can be poured into the tube. Ask your doctor how you should take the medication and follow these directions carefully. Your doctor may adjust your dose of oxycodone during your treatment, depending on how well your pain is controlled and on the side effects that you experience. Tell your doctor if you feel that your pain is not controlled or if your pain increases, becomes worse, or if you have new pain or an increased sensitivity to pain during your treatment with oxycodone. Do not take more of it or take it more often than prescribed by your doctor. Talk to your doctor or pharmacist about access to rescue medicines, naloxone or nalmefene, while taking oxycodone. Rescue medications can reverse the life- threatening effects of an opioid overdose and are available over the counter or with a prescription. Make sure that you and your family members and people usually around you know how to recognize an overdose, how to use naloxone or nalmefene, and what to do until emergency medical help arrives. Your doctor or pharmacist will show you and others how to use it. If symptoms of an overdose occur, they should give the first dose of naloxone, call 911 immediately, and stay with you and watch you closely until emergency medical help arrives. If y our symptoms return, the person should give you another dose of the rescue medication. Additional doses may be given every 2 to 3 minutes, if symptoms return before medical help arrives. If you have been taking oxycodone regularly, do not stop taking oxycodone or rapidly decrease the dose without talking to your doctor. If you stop taking oxycodone suddenly, you may experience withdrawal symptoms such as restlessness, watery eyes, runny nose, sneezing, yawning, sweating, chills, muscle or joint aches or pains, weakness, irritability, anxiety, depression, difficulty falling asleepor staying asleep, cramps, nausea, vomiting, diarrhea, loss of appetite, fast heartbeat, and fast breathing. Your doctor will probably decrease your dose gradually. Are there OTHER USES for this medicine? This medication may be prescribed for other uses; ask your doctor or pharmacist for more information. What SPECIAL PRECAUTIONS should I follow? Before taking oxycodone, ??? tell your doctor or pharmacist if you are allergic to this drug, any part of this drug, or any other drugs, foods or substances. Tell your doctor or pharmacist about the allergy and what symptomsyou had. ??? some medications should not be taken with oxycodone. Make sure you have discussed any medications you are currently taking or plan to take before starting oxycodone with your doctor and pharmacist. Before starting, stopping, or changing any medications while taking oxycodone, please get the advice of your doctor or pharmacist. ??? tell your doctor or pharmacist if you are taking the following medications or have stopped taking them within the past two weeks: isocarboxazid, linezolid, methylene blue, phenelzine, selegiline, or tranylcypromine. ??? the following nonprescription or herbal products may interact with oxycodone: Chelsea's wort and tryptophan. Be sure to let your doctor and pharmacist know that you are taking these medications before you start taking oxycodone. Do not start these medications while taking oxycodone without discussing it with your healthcare provider. ??? tell your doctor if you have or have ever had slowed breathing, asthma, chronic pulmonary disease (COPD), or other lung problems, a blockage or narrowing of your stomach or intestines. Your doctor will probably tell you not to take oxycodone. ??? tell your doctor if you have or have ever hada head injury, a brain tumor, or any condition that increases pressure in the brain; seizures; difficulty urinating; or heart, kidney, liver, pancreas, thyroid, or gall bladder disease. If you will be taking the extended-release products, also tell your doctor if you have or have ever had difficulty swallowing, diverticulitis (condition in which small pouches form in the intestines and become swollen and infected), colon cancer (cancer that begins in the large intestine), or esophageal cancer (cancer that begins in the tube that connects the mouth and stomach). ??? tell your doctor if you are, plan to become , or are . If you become while taking oxycodone call your doctor immediately. ??? you should know that this medication may decrease fertility inmen and women. Talk to your doctor about the risks of taking oxycodone. ??? you should know that this medication may make you drowsy. Do not drive a car, operate heavy machinery, or participate in any other possibly dangerous activities until you know how this medication affects you. ??? you shouldknow to not drink alcoholic beverages while you are taking oxycodone products. Alcohol can make theside effects from oxycodone worse. ??? you should know that oxycodone may cause dizziness, lightheadedness, and fainting when you get up too quickly from a lying position. To help avoid this problem,get out of bed slowly, resting your feet on the floor for a few minutes before standing up. ??? youshould know that oxycodone may cause constipation. Talk to your doctor about changing your diet or using other medications to prevent or treat constipation while you are taking oxycodone. What SPECIAL DIETARY instructions should I follow? Unless your doctor tells you otherwise, continue your normal diet. What should I do IF I FORGET to take a dose? If you are taking oxycodone on a regular schedule, take the missed dose as soon as you remember it.However, if it is almost time for the next dose, skip the missed dose and continue your regular dosing schedule. Do not take a double dose to make up for a missed one. Do not take more than one dose of the extended- release tablets or capsules in 12 hours. What SIDE EFFECTS can this medicine cause? Some side effects can be serious. If you experience any of these symptoms or those mentioned in theIMPORTANT WARNING section, call your doctor immediately or get emergency medical help: ??? chest pain, changes in heartbeat ??? agitation, hallucinations (seeing things or hearing voicesthat do not exist), fever, sweating, confusion, fast heartbeat, shivering, severe muscle stiffness or twitching, loss of coordination, or diarrhea ??? nausea, vomiting, loss of appetite, weakness, or dizziness ??? new pain or pain from touch or doing ordinary tasks such as combing your hair ??? rash; itching; hives; hoarseness; difficulty breathing or swallowing; or swelling of the face, mouth, tongue, lips, or throat ??? difficulty swallowing, regurgitation (bringing up swallowed food into throat and mouth), pain in the chest area ??? seizures ??? extreme drowsiness ??? unusual snoring or long pauses during breaths during sleep If you experience a serious side effect, you or your doctor may send a report to the Food and Drug Administration's (FDA) MedWatch Adverse Event Reporting program online (https://www.fda.gov/Safety/MedWatch) or by phone ( ). Oxycodone may cause other side effects. Call your doctor if you have any unusual problems while youare taking this medication. What should I know about STORAGE and DISPOSAL of this medication? Keep this medication in the container it came in, tightly closed, and out of reach of children, andin a location that is not easily accessible by others, including visitors to the home. Store it at room temperature and away from light and excess heat and moisture (not in the bathroom). Store oxycodone products in a safe place so that no one else can take it accidentally or on purpose. Keep track of how many tablets or solution is left so you will know if any are missing. Dispose of any oxycodone medication that is outdated or no longer needed through a medicine take-back program. If you do not have a take-back program nearby or one that you can access promptly, flushany oxycodone medication down the toilet so that others will not take it. Talk to your pharmacist about the proper disposal of your medication. Keep all medication out of sight and reach of children as many containers are not child-resistant. Always lock safety caps. Place the medication in a safe location ??? one that is up and away and outof their sight and reach. https://www.[employer].org What should I do in case of OVERDOSE? In case of overdose, call the poison control helpline at . Information is also available online at https://www.poisonhelp.org/help. If the victim has collapsed, had a seizure, has trouble breathing, or can't be awakened, immediately call emergency services at 911. Symptoms of overdose may include the following: ??? difficulty breathing, slow or shallow breathing, unusual snoring ??? excessive sleepiness, unable to respond or wake up ??? limp or weak muscles ??? narrowing or widening of the pupils ([place] in the eye) ??? cold, clammy skin ??? slowed heartbeat What OTHER INFORMATION should I know? Keep all appointments with your doctor. Before having any laboratory test, tell your doctor and the laboratory personnel that you are taking oxycodone. This prescription is not refillable. If you continue to have pain after you finish the oxycodone, call your doctor. Keep a written list of all of the prescription and nonprescription (ahah-fcq-hiferll) medicines, vitamins, minerals, and dietary supplements you are taking. Bring this list with you each time you visit a doctor or if you are admitted to the hospital. You should carry the list with you in case of carlyle rgencies. Brand Name(s): ??? Oxaydo? Oxycontin? Roxicodone? Roxybond? Xtampza?? ER also available generically ? This branded product is no longer on the market. Generic alternatives may be available. ?? This report on medications is for your information only, and is not considered individual patient advice. Because of the changing nature of drug information, please consult your physician or pharmacist about specific clinical use. [employer] [place] [employer] represents that the information provided hereunder was formulated with a reasonable standard of care, and in conformity with professional standards in the field. The [place] [employer] makes no representations or warranties, express or implied, including, but not limited to, any implied warranty of merchantability and/or fitness for a particular purpose, with respect to such information and specifically disclaims all such warranties. Users are advised that decisions regarding drug therapy are complex medical decisions requiring the independent, informed decision of an appropriate health senior care specialist, and the information is provided for informational purposes only. The entire monograph for a drug should be reviewed for a thorough understanding of the drug's actions, uses and side effects. The [place] [employer] does not endorse or recommend the use of any drug.The information is not a substitute for medical care. AHFS?? Patient Medication Information???. ?? Copyright, 2023. [employer] [place] [employer]??, [address], [address], [place], [place]. All Rights Reserved. Duplication for commercial use must be authorized by [facility]. Selected Revisions: January 04, 2025. AHFS?? Patient Medication Information???. ?? Copyright, 2024 ?? * Hayder KENDRICK, Cookie Royal: PERFORM Event Display: Patient Education Leaflets Authored Date: [id number] Dexamethasone ?? [id number] Dexamethasone WHY is this medicine prescribed? Dexamethasone, a corticosteroid, is similar to a natural hormone produced by your adrenal glands. It often is used to replace this chemical when your body does not make enough of it. It relieves inflammation (swelling, heat, redness, and pain) and is used to treat certain forms of arthritis; skin, blood, kidney, eye, thyroid, and intestinal disorders (e.g., colitis); severe allergies; and asthma.Dexamethasone is also used to treat certain types of cancer. This medication is sometimes prescribed for other uses; ask your doctor or pharmacist for more information. HOW should this medicine be used? Dexamethasone comes as a tablet and a solution to take by mouth. Your doctor will prescribe a dosing schedule that is best for you. Follow the directions on your prescription label carefully, and askyour doctor or pharmacist to explain any part you do not understand. Take dexamethasone exactly as directed. Do not take more or less of it or take it more often than prescribed by your doctor. Do not stop taking dexamethasone without talking to your doctor. Stopping the drug abruptly can cause loss of appetite, upset stomach, vomiting, drowsiness, confusion, headache, fever, joint and muscle pain, peeling skin, and weight loss. If you take large doses for a long time, your doctor probably will decrease your dose gradually to allow your body to adjust before stopping the drug completely. Watch for these side effects if you are gradually decreasing your dose and after you stop taking the tablets or oral liquid, even if you switch to an inhalation corticosteroid medication. If these problems occur, call your doctor immediately. You may need to increase your dose of tablets or liquid temporarily or start taking them again. What SPECIAL PRECAUTIONS should I follow? Before taking dexamethasone, ??? tell your doctor and pharmacist if you are allergic to dexamethasone, aspirin, tartrazine (a yellow dye in some processed foods and drugs), or any other drugs. ??? tell your doctor and pharmacistwhat prescription and nonprescription medications, vitamins, nutritional supplements, and herbal pro ducts you are taking or plan to take while taking dexamethasone. Your doctor may need to change thedoses of your medications or monitor you carefully for side effects. ??? the following nonprescription products may interact with dexamethasone: ephedrine; aspirin and nonsteroidal anti-inflammatory drugs (NSAIDS) such as ibuprofen (Advil, Motrin, others) and naproxen (Aleve). Be sure to let your doctor and pharmacist know that you are taking these medications before you start taking dexamethasone. Do not start any of these medications while taking dexamethasone without discussing with your healthcare provider. ??? if you have a fungal infection (other than on your skin), do not take dexametha sone without talking to your doctor. ??? tell your doctor if you have or have ever had liver, kidney, intestinal, or heart disease; diabetes; an underactive thyroid gland; high blood pressure; mentalillness; myasthenia gravis; osteoporosis; herpes eye infection; seizures; tuberculosis (TB); or ulcers. ??? tell your doctor if you are , plan to become , or are breast- feeding. If you become while taking dexamethasone, call your doctor. ??? if you are having surgery, including dental surgery, tell the doctor or dentist that you are taking dexamethasone. ??? if you have ahistory of ulcers or take large doses of aspirin or other arthritis medication, limit your consumpti on of alcoholic beverages while taking this drug. Dexamethasone makes your stomach and intestines more susceptible to the irritating effects of alcohol, aspirin, and certain arthritis medications: this effect increases your risk of ulcers. What SPECIAL DIETARY instructions should I follow? Your doctor may instruct you to follow a low-sodium, low-salt, potassium-rich, or high-protein diet. Follow these directions. Dexamethasone may cause an upset stomach. Take dexamethasone with food or milk. What should I do IF I FORGET to take a dose? When you start to take dexamethasone, ask your doctor what to do if you forget a dose. Write down these instructions so that you can refer to them later. If you take dexamethasone once a day, take the missed dose as soon as you remember it. However, if it is almost time for the next dose, skip the missed dose and continue your regular dosing schedule.Do not take a double dose to make up for a missed one. What SIDE EFFECTS can this medicine cause? If you experience any of the following symptoms, call your doctor immediately: ??? skin rash ??? swollen face, lower legs, or ankles ??? vision problems ??? cold or infection that lasts a long time ??? muscle weakness ??? black or tarry stool If you experience a serious side effect, you or your doctor may send a report to the Food and Drug Administration's (FDA) MedWatch Adverse Event Reporting program online (https://www.fda.gov/Safety/MedWatch) or by phone ( ). What should I know about STORAGE and DISPOSAL of this medication? Keep this medication in the container it came in, tightly closed, and out of reach of children. Store it at room temperature and away from excess heat and moisture (not in the bathroom). Keep all medication out of sight and reach of children as many containers are not child-resistant. Always lock safety caps. Place the medication in a safe location ??? one that is up and away and outof their sight and reach. https://www.upandaway.org Dispose of unneeded medications in a way so that pets, children, and other people cannot take them.Do not flush this medication down the toilet. Use a medicine take-back program. Talk to your pharmacist about take-back programs in your community. Visit the FDA's Safe Disposal of Medicines website h ttps://goo.gl/c4Rm4p for more information. What should I do in case of OVERDOSE? In case of overdose, call the poison control helpline at . Information is also available online at https://www.poisonhelp.org/help. If the victim has collapsed, had a seizure, has trouble breathing, or can't be awakened, immediately call emergency services at 911. What OTHER INFORMATION should I know? Keep all appointments with your doctor and the laboratory. Your doctor will order certain lab teststo check your response to dexamethasone. Checkups are especially important for children because dexamethasone can slow bone growth. If your condition worsens, call your doctor. Your dose may need to be adjusted. Carry an identification card that indicates that you may need to take supplementary doses (write down the full dose you took before gradually decreasing it) of dexamethasone during periods of stress (injuries, infections, and severe asthma attacks). Ask your pharmacist or doctor how to obtain this c k[place]. List your name, medical problems, drugs and dosages, and doctor's name and telephone number onthe card. This drug makes you more susceptible to illnesses. If you are exposed to chicken pox, measles, or tuberculosis (TB) while taking dexamethasone, call your doctor. Do not have a vaccination, other immunization, or any skin test while you are taking dexamethasone unless your doctor tells you that you may. Report any injuries or signs of infection (fever, sore throat, pain during urination, and muscle aches) that occur during treatment. Your doctor may instruct you to weigh yourself every day. Report any unusual weight gain. If your sputum (the matter you cough up during an asthma attack) thickens or changes color from clear white to yellow, green, or chamberlain, call your doctor; these changes may be signs of an infection. If you have diabetes, dexamethasone may increase your blood sugar level. If you monitor your blood sugar (glucose) at home, test your blood or urine more frequently than usual. Call your doctor if your blood sugar is high or if sugar is present in your urine; your dose of diabetes medication and your diet may need to be changed. Do not let anyone else take your medication. Ask your pharmacist any questions you have about refilling your prescription. Keep a written list of all of the prescription and nonprescription (ahmn-uic-fshqrag) medicines, vitamins, minerals, and dietary supplements you are taking. Bring this list with you each time you visit a doctor or if you are admitted to the hospital. You should carry the list with you in case of carlyle rgencies. Brand Name(s): ??? Decadron? Dexamethasone Intensol? Dexpak?? Taperpak?? also available generically ?? This report on medications is for your information only, and is not considered individual patient advice. Because of the changing nature of drug information, please consult your physician or pharmacist about specific clinical use. [employer] [place] [employer] represents that the information provided hereunder was formulated with a reasonable standard of care, and in conformity with professional standards in the field. [employer] [place] [employer] makes no representations or warranties, express or implied, including, but not limited to, any implied warranty of merchantability and/or fitness for a particular purpose, with respect to such information and specifically disclaims all such warranties. Users are advised that decisions regarding drug therapy are complex medical decisions requiring the independent, informed decision of an appropriate health senior care specialist, and the information is provided for informational purposes only. The entire monograph for a drug should be reviewed for a thorough understanding of the drug's actions, uses and side effects. The [place] [employer] does not endorse or recommend the use of any drug.The information is not a substitute for medical care. AHFS?? Patient Medication Information???. ?? Copyright, 2023. [employer] [place] [employer]??, [address], [address], [place], [place]. All Rights Reserved. Duplication for commercial use must be authorized by [facility]. Selected Revisions: January 04, 2017. AHFS?? Patient Medication Information???. ?? Copyright, 2024 ?? * Hayder KENDRICK, Cookie Royal: PERFORM Event Display: Patient Education Leaflets Authored Date: [id number] Acetaminophen ?? [id number] Acetaminophen IMPORTANT WARNING: Taking too much acetaminophen can cause liver damage, sometimes serious enough to require liver transplantation or cause . You might accidentally take too much acetaminophen if you do not followthe directions on the prescription or package label carefully, or if you take more than one productthat contains acetaminophen. To be sure that you take acetaminophen safely, you should ??? not take more than one product that contains acetaminophen at a time. Read the labels of all the prescription and nonprescription medications you are taking to see if they contain acetaminophen. Be aware that abbreviations such as APAP, AC, Acetaminophen, Acetaminoph, Acetaminop, Acetamin, or Acetam may be written on the label in place of the word acetaminophen. Ask your doctor or pharmacist for help determining if the product you are taking contains acetaminophen. ??? take acetaminophen exactly as directed on the prescription or package label. Do not take more acetaminophen or take it more often than directed, even if you still have fever or pain. ??? do not take more than 4000 mg of acetaminophen per day from all sources. Ask your doctor or pharmacist if you need help determining how much acetaminophen you can take. ??? tell your doctor if you have or have ever had liver disease. ??? not take acetaminophen if you drink three or more alcoholic drinks every day. Talk to your doctor about the safe use of alcohol while you are taking acetaminophen. ??? stop taking your medication and call your doctor right away if you think you have taken too much acetaminophen, even if you feelwell. Talk to your pharmacist or doctor if you have questions about the safe use of acetaminophen or acetaminophen-containing products. WHY is this medicine prescribed? Acetaminophen is used to relieve mild to moderate pain and to reduce fever. Acetaminophen is in a class of medications called analgesics (pain relievers) and antipyretics (fever reducers). It works by changing the way the body senses pain and by cooling the body. HOW should this medicine be used? Acetaminophen comes as a tablet, chewable tablet, capsule, suspension or solution (liquid), extended-release (long-acting) tablet, and orally disintegrating tablet (tablet that dissolves quickly in the mouth), to take by mouth, with or without food. Acetaminophen is available without a prescription, but your doctor may prescribe acetaminophen to treat certain conditions. Take acetaminophen exactly as directed. Follow the directions on the package or prescription label carefully. Do not take more than indicated on the label. If you are giving acetaminophen to your child, read the package label carefully to make sure that it is the right product for the age of the child. Do not give children acetaminophen products that are made for adults. Check the package label to find out how much medication the child needs. If you know how much your child weighs, give the dose that matches that weight on the chart. If you don't know your child's weight, give the dose that matches your child's age. Ask your child's doctor if you don't know how much medication to give your child. Acetaminophen comes in combination with other medications to treat cough and cold symptoms. Check nonprescription cough and cold product labels carefully before using two or more products at the sametime. These products may contain the same active ingredient(s) and taking them together could causeyou to receive an overdose. Swallow the extended-release tablets whole; do not split, chew, crush, or dissolve them. Place the orally disintegrating tablet ('Meltaways') in your mouth and allow it to dissolve, or chew it before swallowing. Shake the suspension well before each use to mix the medication evenly. Always use the measuring cup or syringe provided by the groundhand to measure each dose of the solution or suspension. Do notswitch dosing devices between different products; always use the device that comes in the product packaging. Stop taking acetaminophen and call your doctor if your symptoms get worse, you develop new or unexpected symptoms, including redness or swelling, your pain lasts for more than 10 days, or your fever gets worse or lasts more than 3 days. Also stop giving acetaminophen to your child and call your child's doctor if your child develops new symptoms, including redness or swelling, or if your child's pain lasts for longer than 5 days, or if a fever gets worse or lasts longer than 3 days. Do not give acetaminophen to a child who has a sore throat that is severe or does not go away, or that occurs along with fever, headache, rash, nausea, or vomiting. Call the child's doctor right away, because these symptoms may be signs of a more serious condition. Are there OTHER USES for this medicine? Acetaminophen may also be used in combination with aspirin and caffeine to relieve the pain associated with migraine headache. This medication is sometimes prescribed for other uses; ask your doctor or pharmacist for more information. What SPECIAL PRECAUTIONS should I follow? Before taking acetaminophen, ??? tell your doctor or pharmacist if you are allergic to this medication, any part of this medication, or any other medications, foods or substances. Tell your doctor or pharmacist about the allergyand what symptoms you had. ??? tell your doctor and pharmacist what prescription and nonprescription medications, vitamins, nutritional supplements, or herbal products you are taking or plan to take while taking acetaminophen. Your doctor may need to change the doses of your medications or monitor you carefully for side effects. ??? tell your doctor if you are , plan to become , or are breast-feeding. If you become while taking acetaminophen, call your doctor. ??? you should know that combination acetaminophen products for cough and colds that contain nasal decongestants, antihistamines, cough suppressants, and expectorants should not be used in children younger than 2 years of age. Use of these medications in young children can cause serious and life-threatening effects or . In children 2 through 11 years of age, combination cough and cold products should b e used carefully and only according to the directions on the label. ??? if you have phenylketonuria(PKU, an inherited condition in which a special diet must be followed to prevent damage to your brain that can cause severe intellectual disability), you should know that some brands of acetaminophenchewable tablets may be sweetened with aspartame, a source of phenylalanine. What SPECIAL DIETARY instructions should I follow? Unless your doctor tells you otherwise, continue your normal diet. What should I do IF I FORGET to take a dose? This medication is usually taken as needed. If your doctor has told you to take acetaminophen regularly, take the missed dose as soon as you remember it. However, if it is almost time for the next dose, skip the missed dose and continue your regular dosing schedule. Do not take a double dose to make up for a missed one. What SIDE EFFECTS can this medicine cause? Some side effects can be serious. If you experience any of the following symptoms, stop taking acetaminophen and call your doctor immediately or get emergency medical attention: ??? red, peeling or blistering skin; rash; hives; itching; swelling of the face, throat, tongue, lips, hands, feet, ankles or lower legs; hoarseness; difficulty breathing or swallowing ??? yellowing of the skin or whites of the eyes; upper belly pain; dark urine; pale stools Acetaminophen may cause other side effects. Call your doctor if you have any unusual problems whileyou are taking this medication. If you experience a serious side effect, you or your doctor may send a report to the Food and Drug Administration's (FDA) MedWatch Adverse Event Reporting program online (https://www.fda.gov/Safety/MedWatch) or by phone ( ). What should I know about STORAGE and DISPOSAL of this medication? Keep this medication in the container it came in, tightly closed, and out of reach of children. Store it at room temperature and away from excess heat and moisture (not in the bathroom). Keep all medication out of sight and reach of children as many containers are not child-resistant. Always lock safety caps. Place the medication in a safe location ??? one that is up and away and outof their sight and reach. https://www.[employer].org Dispose of unneeded medications in a way so that pets, children, and other people cannot take them.Do not flush this medication down the toilet. Use a medicine take-back program. Talk to your pharmacist about take-back programs in your community. Visit the FDA's Safe Disposal of Medicines website h ttps://goo.gl/c4Rm4p for more information. What should I do in case of OVERDOSE? In case of overdose, call the poison control helpline at . Information is also available online at https://www.poisonhelp.org/help. If the victim has collapsed, had a seizure, has trouble breathing, or can't be awakened, immediately call emergency services at 041. If someone takes more than the recommended dose of acetaminophen, get medical help immediately, even if the person does not have any symptoms. Symptoms of overdose may include the following: ??? nausea, vomiting, loss of appetite; upper belly pain ??? yellowing of the skin or eyes ??? sweating ??? extreme tiredness or flu-like symptoms ??? unusual bleeding or bruising What OTHER INFORMATION should I know? Ask your pharmacist any questions you have about acetaminophen. Keep a written list of all of the prescription and nonprescription (mxsn-cfe-snmmiaa) medicines, vitamins, minerals, and dietary supplements you are taking. Bring this list with you each time you visit a doctor or if you are admitted to the hospital. You should carry the list with you in case of carlyle rgencies. Brand Name(s): ??? Actamin? Feverall? Panadol? Tempra Quicklets? Tylenol? Dayquil?? (as a combination product containing Acetaminophen, Dextromethorphan, Pseudoephedrine) ??? NyQuil Cold/Flu Relief?? (as a combination product containing Acetaminophen, Dextromethorphan, Doxylamine) ?? APAP, Y-pctfnx-jlwa-aminophenol, Paracetamol ? This branded product is no longer on the market. Generic alternatives may be available. ?? This report on medications is for your information only, and is not considered individual patient advice. Because of the changing nature of drug information, please consult your physician or pharmacist about specific clinical use. The [employer] [place] [employer] represents that the information provided hereunder was formulated with a reasonable standard of care, and in conformity with professional standards in the field. The [place] [employer] makes no representations or warranties, express or implied, including, but not limited to, any implied warranty of merchantability and/or fitness for a particular purpose, with respect to such information and specifically disclaims all such warranties. Users are advised that decisions regarding drug therapy are complex medical decisions requiring the independent, informed decision of an appropriate health senior care specialist, and the information is provided for informational purposes only. The entire monograph for a drug should be reviewed for a thorough understanding of the drug's actions, uses and side effects. The [employer] [place] [employer] does not endorse or recommend the use of any drug.The information is not a substitute for medical care. AHFS?? Patient Medication Information???. ?? Copyright, 2023. The [employer] [place] [employer]??, [address], [address], [place], [place]. All Rights Reserved. Duplication for commercial use must be authorized by [facility]. Selected Revisions: February 03, 2025. AHFS?? Patient Medication Information???. ?? Copyright, 2024 ?? Patient Care team information Care Team Personnel Name: Althea Patterson Position: S RN Member Role: Primary Care Nurse Name: Avril Mcintosh RN Position: S RN Member Role: Primary Care Nurse Name: Brigette Montaño RN Position: S RN Member Role: Primary Care Nurse Name: Axel Louis RN Position: S RN Member Role: Primary Care Nurse Name: Keri Hope RN Position: [facility] RN Member Role: Primary Care Nurse Name: Stephani Garcia RN Position: [facility] RN Member Role: Primary Care Nurse Name: Brigette Jauregui RN Position: [facility] RN Member Role: Primary Care Nurse Care Team Related Persons Name: CARMENCITA NAJERAEMIR Insurance Providers Guarantor name: GALINDO Health Plan Information #: 1 Payer: MEDICARE A INPT 26 Payer Identifier: GALINDO Member Number: [id number] Group Number: [id number] Subscriber Identifier: [id number] Relationship to Subscriber: self Coverage Type: MEDICARE Coverage Verification Date: NA Telecom: GALINDO Address:
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
[2025-03-30 15:22] VITALS: BP 137/64; PULSE 97; RESP 18; TEMP 36.3; O2SAT 95; BMI 18.0
== END 2025-03-30 16:16 | disposition home or self-care (01) ==
LOC: HO.HMCFMS 15:11
PROVIDERS: Visit Provider Student in an Organized Health Care Education/Training Program
DX: C78.00 Secondary malignant neoplasm of unspecified lung (principal); R56.9 Unspecified convulsions; I10 Essential (primary) hypertension; Z87.891 Personal history of nicotine dependence

== ENCOUNTER → 2025-03-30 15:11 | Outpatient (BNVA) | payer MEDICARE, SELFPAY | PROVIDERS: Visit Provider Student in an Organized Health Care Education/Training Program | DX: Z71.89 Other specified counseling (principal); C34.92 Malignant neoplasm of unspecified part of left bronchus or lung; C79.31 Secondary malignant neoplasm of brain; C79.72 Secondary malignant neoplasm of left adrenal gland; C77.9 Secondary and unspecified malignant neoplasm of lymph node, unspecified; R56.9 Unspecified convulsions; I10 Essential (primary) hypertension; E83.52 Hypercalcemia; R63.4 Abnormal weight loss; Z68.1 Body mass index [BMI] 19.9 or less, adult; Z87.891 Personal history of nicotine dependence; Z76.89 Persons encountering health services in other specified circumstances; Z13.9 Encounter for screening, unspecified; Z13.30 Encounter for screening examination for mental health and behavioral disorders, unspecified | CPT/HCPCS: 96127; 99202 ==

== ENCOUNTER 2025-04-02 09:25 | Outpatient (REF) | payer MEDICARE, SELFPAY ==
[2025-04-02 14:24] LABS: MANUAL DIFF FLAG NO
[2025-04-02 14:33] LABS: Hematocrit 42.1 % (37.0-47.0); Hemoglobin 13.9 g/dl (12.0-16.0); Imm Gran Abs Auto 0.06 X10*3/uL (0.00-0.03); Imm Gran Pct Auto 0.5 % (0.0-0.4); Lymphocytes Absolute Auto 0.7 X10*3/uL (1.2-4.9); Mean Corpuscular HGB Conc 33.0 g/dl (31.0-35.0); Mean Corpuscular Hemoglobin 28.7 pg (27.0-33.0); Mean Corpuscular Volume 87.0 fL (80.0-98.0); NRBC Abs Auto 0.000 X10*3/uL (0.0-0.012); NRBC Pct Auto 0.0 /100WBC (0.0-0.2); Platelet Count 507 X10*3/uL (160-400); Red Blood Count 4.84 X10*6/uL (4.20-5.50); White Blood Count 11.4 X10*3/uL (4.8-10.8)
[2025-04-02 15:01] LABS: Alanine Aminotransferase 24 U/L (0-31); Albumin Level 4.7 g/dL (3.5-5.0); Alkaline Phosphatase 57 U/L (39-117); Anion Gap 12 (12-20); Aspartate Amino Transferase 27 U/L (5-31); Blood Urea Nitrogen 17 mg/dL (9-16); Calcium 10.3 mg/dL (8.4-10.2); Carbon Dioxide 28 mmol/L (22-29); Chloride 102 mmol/L (96-108); Cholesterol 173 mg/dL (<200); Estimated Glomerular Filt Rate > 60; HDL Cholesterol 67 mg/dL (>40); Magnesium 2.3 mg/dL (1.6-2.6); Potassium 4.7 mmol/L (3.3-5.1); Sodium 137 mmol/L (135-145); Total Protein 7.9 g/dL (6.5-8.0); Triglycerides 113 mg/dL (<150)
[2025-04-02 15:25] LABS: Folate 9.0 ng/mL (> or = 4.0); Vitamin B12 1419 pg/mL (200-900)
[2025-04-03 07:22] LABS: Syphilis Screen Nonreactive (Nonreactive)
[2025-04-03 07:55] LABS: HBS Num1 0.00 mIU/mL (0-7.99); HBsAGNum1 0.47 S/CO (0.00-0.99); HIV Num 1 0.08 S/CO (0.00-0.99); Hepatitis B Surface Antigen Negative (Negative); ~HepC Num1 0.20 S/CO (0.00-0.79); ~Hepatitis B Surface Antibody NONREACTIVE (Nonreactive); ~Hepatitis C Antibody Nonreactive (Nonreactive)
== END 2025-04-02 09:26 | disposition home or self-care (01) ==
LOC: HO.HKASLDS 09:25
PROVIDERS: PCP Student in an Organized Health Care Education/Training Program; Visit Provider Student in an Organized Health Care Education/Training Program
DX: Z13.89 Encounter for screening for other disorder (principal); Z13.6 Encounter for screening for cardiovascular disorders; Z13.21 Encounter for screening for nutritional disorder; Z13.1 Encounter for screening for diabetes mellitus; Z13.29 Encounter for screening for other suspected endocrine disorder; Z13.0 Encounter for screening for diseases of the blood and blood-forming organs and certain disorders involving the immune mechanism; Z11.4 Encounter for screening for human immunodeficiency virus [HIV]
CPT/HCPCS: 36415; 80053; 80061; 82306; 82607; 82746; 83036; 83735; 84443; 85025; 86706; 86780; 86803; 87340; 87389

== ENCOUNTER 2025-04-08 10:05 | Outpatient (REF) | payer MEDICARE, SELFPAY ==
[2025-04-08 14:19] LABS: Appearance Urine Cloudy; Glucose Urine UA Negative (Negative); PH 7.0 (5.0-9.0); Specific Gravity - Urine 1.020 (1.005-1.025); UMIC TRIGGER UACC YES
[2025-04-08 14:27] LABS: UACC Culture Trigger YES
== END 2025-04-08 10:06 | disposition home or self-care (01) ==
LOC: HO.HKASLDS 10:05
PROVIDERS: PCP Student in an Organized Health Care Education/Training Program; Visit Provider Student in an Organized Health Care Education/Training Program
DX: Z13.9 Encounter for screening, unspecified (principal)
CPT/HCPCS: 81001; 87086

== ENCOUNTER 2025-04-16 11:43 | Outpatient (AMB) | payer MEDICARE, SELFPAY ==
[2025-04-16 11:53] VITALS: BP 142/61; PULSE 105; RESP 16; TEMP 36.7; O2SAT 97
--- NOTE | 2025-04-16 11:53 | MHC.PC.OV ---
Vital Signs 04/16/25 11:53 Height 5 ft 2 in BP 142/61 H Blood Pressure Location Lt brachial Position Sitting Respiration 16 Pulse 105 H Pulse Source Pulse Oximeter Temp 98.1 F Temp Source Oral Pulse Oximetry (%) 97 Oxygen Delivery Method Room Air Intake Visit Reasons: 2 wk - lab review Intake Note: Patient is present to establish care. 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 Accompanied by: Self / Same As Patient Allergies meperidine (From Demerol) Allergy (Intermediate, Verified 04/16/25 12:05) Vomiting Medication List - Last Reconciled 04/17/25 by Tomas Workman MD amlodipine 2.5 mg PO DAILY dexamethasone 4 mg PO Q6H levetiracetam 500 mg PO BID nystatin 1 mL PO QID Tobacco use date assessed: 04/16/25 Fall risk assessment: No Falls in past year Last assessed Fall Risk: 04/16/25 Dental Screening Dental Screen Date: 04/16/25 Did you have a dental visit in the last 12 months?: No Did you have a dental problem in the last 6 months where you did not have access to dental care?: No Was dental information given to patient?: No HPI HPI Comments History of Present Illness Details History of Present Illness The patient is a 65 year old female presenting for follow-up, review of recent laboratory results, and to address new onset muscle twitches and oral pain. Oral Candidiasis: The patient reports experiencing symptoms consistent with oral thrush, which is causing pain upon eating. Seizure Disorder: The patient has a history of a seizure, which led to the discovery of her other medical conditions. She is managed on a low dose of Keppra. She recently experienced muscle twitches over a couple of days, which she reported to her oncology team. The patient believes the twitches were due to inadequate water intake with her medication, and they resolved after she increased her hydration. Her oncology team opted not to increase her Keppra dose. Lung Neoplasm: The patient has a known large mass in her lung. Despite the size of the mass, she denies any respiratory symptoms such as headaches and reports having perfect breathing. She is actively followed by an oncology team, whom she last saw on Saturday, the . She is currently taking steroids and is in the process of tapering off of them. Medications: - Keppra: Low dose for seizures. - Steroids: Currently tapering off. Diagnostic Results: - Labs: - CBC: White blood cell count and platelets are slightly elevated, attributed to steroid use. - CMP: Electrolytes (sodium, potassium), renal function, calcium, magnesium, liver function, and albumin are all normal. - Glucose: Random glucose and Hemoglobin A1c are normal. - Lipids: Triglycerides and cholesterol levels are good. - Vitamins/Hormones: Vitamin B12 is slightly elevated, while Vitamin D, folate, and thyroid function are normal. - Serology: Negative for syphilis, Hepatitis B, Hepatitis C, and HIV. - Tests and diagnostics: - Urinalysis: Shows a small amount of protein, small amount of blood, leukocyte esterase, white blood cells, and red blood cells; nitrites were negative. Past Medical History - Lung mass, under the care of oncology. - Seizure disorder. Health Maintenance - Serology screening for syphilis, Hepatitis B, Hepatitis C, and HIV were negative. 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 1. Little interest or pleasure in doing things: several days 2. Feeling down, depressed, or hopeless: not at all 3. Trouble falling or staying asleep, or sleeping too much: several days 4. Feeling tired or having little energy: several days 5. Poor appetite or overeating: nearly every day 6. Feeling bad about yourself - or that you are a failure or have let yourself or your family down: not at all 7. Trouble concentrating on things, such as reading the newspaper or watching television: not at all 8. Moving or speaking so slowly that other people could have noticed. Or the opposite - being so fidgety or restless that you have been moving around a lot more than usual: not at all 9. Thoughts that you would be better off or of hurting yourself in some way: not at all Total score: 6 Depression Screening Interpretation: Negative Depression Screening Done: Yes 00199 - PHQ-9 Billing: Yes Source: Developed by Drs. Mauri Elaine, Delmy Sheikh, Aristides Pulliam and colleagues, with an educational ector from [employer]. Thrive Questionnaire Date Thrive assessed: 04/16/25 I am a: Patient What is your living situation today?: I have a steady place to live Within the past 12 months, did the food you bought not last and you didn't have the money to get more?: Never true Within the past 12 months, did you worry whether your food would run out before you got money to buy more?: Never true Do you have trouble paying for medicines?: No Do you have trouble getting transportation to medical appointments?: No Do you have trouble paying your heating and electricity bill?: No Do you have trouble taking care of your child, family member or friend?: I choose not to answer this question Do you have trouble with day-to-day activities such as bathing, preparing meals, shopping, managing finances, etc.?: No Are you currently unemployed and looking for a job?: No Are you interested in more education?: No Currently or been in a relationship where the following occur: No concerns reported THRIVE Score: 0 AUDIT C Alcohol Use Questionnaire (AUDIT-C) 1. How often do you have a drink containing alcohol?: Monthly or less 2. How many drinks containing alcohol do you have on a typical day when you are drinking?: 1 or 2 3. How often do you have six or more drinks on one occasion?: Never Total Score: 1 DEYANIRA-7 AMB Questionnaire DEYANIRA-7 Date DEYANIRA - 7 assessed: 03/30/25 Feeling nervous, anxious, or on edge: 1 = Several days Not being able to stop or control worryin = Not at all Worrying too much about different things: 1 = Several days Trouble relaxin = Several days Being so restless that it is hard to sit still: 0 = Not at all Becoming easily annoyed or irritable: 0 = Not at all Feeling afraid as if something awful might happen: 0 = Not at all Total DEYANIRA-7 score (0-4 normal; 5-9 mild; 10-14 moderate; 15-21 severe): 3 Source: Developed by Drs. Mauri Elaine, Delmy Sheikh, Aristides Pulliam and colleagues, with an educational ector from [employer]. DEYANIRA-7 Assessment Billing DEAYNIRA-7 Assessment Tool: DEYANIRA-7 Assessment 99786 Review of Systems Narrative Review of Systems - Constitutional: Reports feeling good and happy. - Neurological: Reports recent, resolved muscle twitches. - Neurological: Denies headaches. - Respiratory: Denies any issues with breathing. - GI/Oral: Reports pain with eating and suspects she has thrush. - Genitourinary: Denies urinary frequency, urgency, pain, or foul-smelling urine. 10-point ROS reviewed and negative except as noted in HPI Physical exam (Primary Care) Vital Signs: Last Vital Signs Temp 98.1 F 04/16/25 11:53 Pulse 105 H 04/16/25 11:53 Resp 16 04/16/25 11:53 BP 142/61 H 04/16/25 11:53 Pulse Ox 97 04/16/25 11:53 Oxygen Delivery Method Room Air 04/16/25 11:53 Tobacco/Smoking Status: Tobacco use Status Tobacco use date assessed 04/16/25 04/16/25 11:58 Patient Tobacco Use Status Former Tobacco user 04/16/25 11:58 e-Cigarette/Vaping Use Never Used 04/16/25 11:58 PHQ-9: PHQ-9 Score PHQ-9: Total score 6 04/16/25 11:58 Depression Screening Interpretation: Negative Thrive Assessment: Date of Thrive Assessment Date Thrive assessed 04/16/25 04/16/25 11:58 Currently or been in a relationship where the following occur: No concerns reported Narrative Physical Exam General: cachectic in no acute distress. Vital signs: Within normal limits. HEENT: Normocephalic, atraumatic. PERRLA, EOMI. Conjunctiva clear, sclera anicteric. Oropharynx clear, mucous membranes moist. TMs intact bilaterally. Noted thrush in the oropharynx. Neck: Supple, no lymphadenopathy, no thyromegaly, no JVD or carotid bruits. Cardiovascular: RRR, normal S1/S2, no murmurs, rubs, or gallops. Peripheral pulses 2+ and symmetric. No edema. Respiratory: Lungs clear to auscultation bilaterally, no wheezes, rales, or rhonchi. Normal effort. Abdomen: Soft, non-tender, non-distended. Normoactive bowel sounds. No hepatosplenomegaly, no masses. MSK: Full range of motion, no joint swelling or deformity. Normal gait. Skin: Warm, dry, intact. No rashes, lesions, or pallor. Neuro: Alert and oriented x3. Cranial nerves II-XII intact. Strength 5/5 throughout. Sensation intact. Reflexes 2+ symmetric. Normal coordination and gait. Psych: Appropriate mood and affect. Normal judgment and insight. Coding Level of Care Code Est Pt Level 3 (80938) Add On Problem Visit Only Diagnoses Oral candidiasis B37.0 Seizure disorder G40.909 Metastatic adenocarcinoma to lung C78.00 History of nicotine use Z87.89 Leukocytosis D72.829 Thrombocytosis D75.839 Pyuria R82.81 Additional Codes DEYANIRA-7 Assessment Billing - DEYANIRA-7 Assessment Tool: DEYANIRA-7 Assessment 28299 ([id number]) PHQ-9 - 11234 - PHQ-9 Billing: Yes ([id number]) Assessment & Plan Assessment & Plan (1) Oral candidiasis: Code(s): B37.0 - Candidal stomatitis Category: Medical (2) Seizure disorder: Code(s): G40.909 - Epilepsy, unspecified, not intractable, without status epilepticus Category: Medical (3) Metastatic adenocarcinoma to lung: Code(s): C78.00 - Secondary malignant neoplasm of unspecified lung Category: Medical (4) History of nicotine use: Code(s): Z87.891 - Personal history of nicotine dependence Category: Medical (5) Leukocytosis: Code(s): D72.829 - Elevated white blood cell count, unspecified Category: Medical (6) Thrombocytosis: Code(s): D75.839 - Thrombocytosis, unspecified Category: Medical (7) Pyuria: Code(s): R82.81 - Pyuria Category: Medical Plan Consent Patient was informed and verbally consented to the use of an ambient scribe for clinic note documentation during this visit. Plan 1. Oral Candidiasis - A prescription for Nystatin suspension (Swish and Swallow) will be sent. - The patient is instructed to use the medication four times a day for 7 to 14 days. - If symptoms do not resolve, a systemic antifungal medication will be considered as the next step. 2. Seizure Disorder - The patient will continue her current low-dose Keppra regimen. - The recent muscle twitches are attributed to dehydration and have resolved, so no change in anticonvulsant medication is warranted at this time. 3. Asymptomatic Pyuria - Despite urinalysis findings of pyuria, hematuria, and proteinuria, no antibiotics will be prescribed as the patient is asymptomatic for a urinary tract infection. - This decision is to avoid promoting antibiotic resistance. - The condition will be monitored. 4. Leukocytosis And Thrombocytosis - The elevated white blood cell and platelet counts are noted to be a likely side effect of her current steroid therapy. - No action is required as she is tapering off the steroids. Discussion Notes I reviewed the patient's recent laboratory results with her. I explained that the elevated white blood cell and platelet counts are an expected side effect of the steroids she is taking. We discussed the findings in her urine, and I clarified that since she is asymptomatic, I will not be prescribing antibiotics in order to prevent antibiotic resistance. Regarding her oral pain, which is likely thrush, I informed her that I will prescribe Nystatin suspension to be used four times daily, and I advised her to contact me if it does not improve for consideration of a systemic medication. I reassured her that her other labs were good and encouraged her to continue with her current care plan. Patient Instructions - For your mouth pain, take the Nystatin prescription as directed. Swish the liquid in your mouth and then swallow it, four times a day, for the next 7 to 14 days. - If the pain in your mouth does not get better, please let us know. - Make sure you are drinking plenty of water, especially when taking your medication. Medical Decision Making The patient is a 65-year-old female here for a follow-up visit and review of symptoms and labs. Her new complaint of odynophagia is clinically consistent with oral candidiasis, for which a prescription for Nystatin suspension is a suitable first-line therapy. If this topical treatment fails, a systemic antifungal will be considered. The patient's laboratory results show a mild leukocytosis and thrombocytosis, which are attributable to her current steroid regimen. As she is tapering this medication, no acute intervention is necessary. Her urinalysis revealed findings consistent with sterile pyuria; given the absence of clinical UTI symptoms, antibiotics are being withheld to prevent the development of antibiotic resistance. Her recent muscle twitches appear to have been related to dehydration, as they resolved with increased fluid intake. This does not suggest a progression of her underlying seizure disorder, and her current low-dose Keppra will be continued as managed by her oncology team. Total Time Statement 20 min Total time spent caring for the patient today includes pre-visit chart review, documentation, review of laboratory and diagnostic imaging results, medication reconciliation, medically necessary evaluation, counseling on diagnoses, care coordination, ordering appropriate tests and medications, review of tests performed by other providers, reporting test results to the patient, and communication with other healthcare providers. Medications: New nystatin swish and swallow 1 mL PO QID 473 mL 0RF
== END 2025-04-16 12:18 | disposition home or self-care (01) ==
LOC: HO.HMCFMS 11:43
PROVIDERS: Visit Provider Student in an Organized Health Care Education/Training Program
DX: B37.0 Candidal stomatitis (principal); G40.909 Epilepsy, unspecified, not intractable, without status epilepticus; C78.00 Secondary malignant neoplasm of unspecified lung; Z87.891 Personal history of nicotine dependence; D72.829 Elevated white blood cell count, unspecified; D75.839 Thrombocytosis, unspecified; R82.81 Pyuria

== ENCOUNTER → 2025-04-16 11:43 | Outpatient (BNVA) | payer MEDICARE, SELFPAY | PROVIDERS: Visit Provider Student in an Organized Health Care Education/Training Program | DX: Z71.2 Person consulting for explanation of examination or test findings (principal); E11.9 Type 2 diabetes mellitus without complications; B37.0 Candidal stomatitis; G40.909 Epilepsy, unspecified, not intractable, without status epilepticus; C78.00 Secondary malignant neoplasm of unspecified lung; D72.829 Elevated white blood cell count, unspecified; D75.839 Thrombocytosis, unspecified; R82.81 Pyuria; Z87.891 Personal history of nicotine dependence; Z13.31 Encounter for screening for depression | CPT/HCPCS: 96127; 99211; 99212 ==